=== PATIENT | male | born 1935 | race Caucasian/White ===

== ENCOUNTER 2019-02-18 14:45 | Inpatient (IN) | payer BC ==
[~2019-02-18] VITALS: Ht 182.9 cm; Wt 89.4 kg
[2019-02-18] VITALS (9 sets, daily range): BP systolic 83–129
--- NOTE | 2019-02-18 14:45 | NUR ---
BIB BLS from [facility] for respiratory infection. Placed in room 03. Placed on hospital monitor, blood pressure machine and pulse oximeter. To gown for exam. Side rails up. Report given to Dr. Gavin.
--- NOTE | 2019-02-18 14:48 | NUR ---
ER Dr. Gavin at bedside examining patient.
[2019-02-18] MEDS ORDERED: NACL 0.9% 1,000 ML IV ONE (15:15)
--- NOTE | 2019-02-18 15:17 | NUR ---
Dr. Gavin at bedside. Pt does not have gag reflex but is arrousable.
--- NOTE | 2019-02-18 15:20 | NUR ---
# 16 FR Sheppard catheter with use of sterile technique. Immediate return of 100 cc dark yellow urine noted. Bedside drainage bag placed below level of bladder. Urine sample collected and sent to lab. Pt tolerated procedure well Patient unable to toilet self.
--- NOTE | 2019-02-18 15:22 | NUR ---
Patient not known to be of DNR status. POLST states FULL CODE. Patient medicated with 20mg of etomidate for sedation prior to placement of ET tube. Respiratory therapy at bedside prior to placement. Size 7.5 ET tube placed by Dr. Gavin, +C02 color change. Cuff inflated with air. Auscultation of breath sounds over bilateral chest wall. ET tube secured with secure device. O2 sats 79% pulse ox prior to intubation, increased to 93%. PCXR ordered to check tube placement.
--- NOTE | 2019-02-18 15:35 | NUR ---
# 16 FR NG tube placed to RT & LT nare without success. #16 FR OG tube placed.
[2019-02-18 15:36] LABS: EOSINOPHILS # (AUTO) 0.3 K/uL (0.0-0.4); EOSINOPHILS % (AUTO) 2.2 % (0.0-4.0); HEMATOCRIT 43.2 % (36-54); LYMPHOCYTES # (AUTO) 0.5 K/uL (1.0-5.5); LYMPHOCYTES % (AUTO) 3.6 % (20.5-51.5); MEAN CORPUSCULAR HEMOGLOBIN 27 pg (27-31); MEAN CORPUSCULAR HGB CONC 30 % (32-36); MEAN CORPUSCULAR VOLUME 89 fL (79.0-98.0); MONOCYTES # (AUTO) 1.6 K/uL (0.0-1.0); MONOCYTES % (AUTO) 10.6 % (1.7-9.3); NEUTROPHILS # (AUTO) 12.2 K/uL (1.8-7.7); NEUTROPHILS % (AUTO) 82.6 % (40.0-70.0); RED BLOOD CELL COUNT(AUTO) 4.85 MIL/uL (4.2-6.2); RED CELL DISTRIBUTION WIDTH 19.6 % (9.0-15.0); WHITE BLOOD COUNT (AUTO) 14.8 K/uL (4.8-10.8)
--- NOTE | 2019-02-18 15:37 | NUR ---
PCxR taken at bedside ETT placement and NG/OG tube verification. OG needed to be pushed down, repeat taken, not in stomach. Removed per MD order
--- NOTE | 2019-02-18 15:40 | NUR ---
Pt moved to bed 1 for closer monitoring
[2019-02-18] MEDS ORDERED: PROPOFOL DRIP 100 ML IV ONE (15:45)
--- NOTE | 2019-02-18 15:45 | NUR ---
Pt attempting to pull out ETT, order for restraints recieved. Pt placed in bilat upper restraints.
[2019-02-18 15:46] LABS: INR 1.2 (0.80-1.20); PROTHROMBIN TIME 12.2 SECS (9.5-12.5)
[2019-02-18 15:50] LABS: PLATELET COUNT (AUTO) 947 K/uL (130-430)
[2019-02-18 15:55] LABS: BLOOD, URINE 1+ (NEGATIVE); COLOR,URINE AMBER (YELLOW); GLUCOSE,URINE NEGATIVE (NEGATIVE); KETONES,URINE TRACE (NEGATIVE); LEUKOCYTE ESTERASE ,URINE TRACE (NEGATIVE); NITRITE, URINE NEGATIVE (NEGATIVE); PROTEIN URINE 1+ (NEGATIVE); UROBILINOGEN,URINE 0.2 (0.2-1.0)
[2019-02-18 15:56] LABS: BILIRUBIN,URINE NEGATIVE (NEGATIVE); CLARITY/URINE HAZY (CLEAR)
[2019-02-18 15:58] LABS: BACTERIA,URINE MODERATE /HPF (None Seen); MUCUS,URINE None Seen /LPF (None Seen)
[2019-02-18] MEDS ORDERED: ETOMIDATE 20 MG/ 10 ML VIAL (AMIDATE) ONE (16:00)
[2019-02-18 16:02] LABS: ANION GAP 3 (5-15); BASOPHILS # (AUTO) 0.1 K/uL (0.0-0.2); CALCIUM 7.1 mg/dL (8.4-11.0); CHLORIDE 104 mmol/L (98-107); GLUCOSE 144 mg/dL (70-99); POTASSIUM 5.3 mmol/L (3.5-5.1); SODIUM SERUM 143 mmol/L (136-145); UREA NITROGEN, BLOOD 47 mg/dL (8-21)
--- NOTE | 2019-02-18 16:06 | NUR ---
Propofol started at 5mcg, pt intermittently attempting to grab ETT.
--- NOTE | 2019-02-18 16:14 | NUR ---
Propofol increased to 10mcg
[2019-02-18 16:17] LABS: ALANINE AMINOTRANSFERASE 12 U/L (12-78); ALBUMIN 3.1 g/dL (3.4-4.8); ASPARTATE AMINOTRANSFERASE 11 U/L (10-37); TOTAL BILIRUBIN 0.4 mg/dL (0.0-1.0)
[2019-02-18] MEDS ORDERED: PIPERACILLIN/TAZO 3.375 GM in NS 50 ML IV ONE (16:30)
[2019-02-18] MEDS ORDERED: NACL 0.9% 1,250 ML IV ONE (16:30)
[2019-02-18] MEDS ORDERED: CLINDAMYCIN 900 mg/50mL D5W 50 ML IV ONE (16:30)
[2019-02-18] MEDS ORDERED: LOSA50TA3 PO (16:51)
[2019-02-18] MEDS ORDERED: METO25TA3 PO (16:51)
[2019-02-18] MEDS ORDERED: AMLO5TAB4 PO (16:51)
[2019-02-18] MEDS ORDERED: ACET325T53 PO (16:51)
[2019-02-18] MEDS ORDERED: RIVA20TA PO (16:51)
[2019-02-18] MEDS ORDERED: HYT1 PO (16:51)
[2019-02-18] MEDS ORDERED: SSREG SUBCUT (16:51)
[2019-02-18] MEDS ORDERED: AMIN30LI19 PO (16:51)
[2019-02-18] MEDS ORDERED: SENN8.6T19 GT (16:51)
[2019-02-18] MEDS ORDERED: MEMA10TA PO (16:51)
[2019-02-18] MEDS ORDERED: FURO-149 PO (16:51)
[2019-02-18] MEDS ORDERED: IPRA3AMP9 INH (16:51)
[2019-02-18] MEDS ORDERED: GLU500 PO (16:51)
[2019-02-18] MEDS ORDERED: MULT-1117 PO (16:51)
[2019-02-18] MEDS ORDERED: ASCO500T20 PO (16:51)
[2019-02-18] MEDS ORDERED: HYDR-4274 PO (16:51)
[2019-02-18] MEDS ORDERED: POTA20TA83 PO (16:51)
[2019-02-18] MEDS ORDERED: ACAR50TA PO (16:51)
[2019-02-18] MEDS ORDERED: PIPERACILLIN/TAZOBACTAM 3.375 GM/VIAL (ZOSYN) IV ONE (16:53)
[2019-02-18] MEDS ORDERED: LORazepam 2 MG/ML VIAL IVP ONE (17:00)
--- NOTE | 2019-02-18 17:00 | NUR ---
Medication reconciliation completed with information provided by [facility]. Any prior medication reconciliation on file was reviewed and corrected.
[2019-02-18] MEDS ORDERED: LORazepam 2 MG/ML VIAL ONE (17:09)
[2019-02-18] MEDS ORDERED: SODIUM POLYSTYRENE SULFONATE 15 GM/60 ML UDBTL RC ONE (17:15)
--- NOTE | 2019-02-18 18:51 | NUR ---
Patient will be admitted to care of Dr. Albright. Admitted to ICU unit. Will go to room ICU-8. Belongings list completed. Complete and up to date summary report printed. SBAR report to be given at bedside with opportunity for questions.
--- NOTE | 2019-02-18 18:55 | NUR ---
Patient Transfer Received Patient report received via SBAR communication from nurse Ayanna RN
[2019-02-18] MEDS ORDERED: LevALBUTEROL HCL 1.25 MG/0.5 ML *CONC.* VIAL.NEB (XOPENEX CONC.) INH PRN (19:15)
[2019-02-18] MEDS ORDERED: AZITHROMYCIN 500 MG in NS 250 ML IV SCH (19:15)
[2019-02-18] MEDS ORDERED: IPRATROPIUM BROM 0.5 MG/2.5 ML VIAL.NEB (ATROVENT) INH PRN (19:15)
--- NOTE | 2019-02-18 19:15 | NUR ---
OPENING NOTE RECEIVED REPORT FROM NJ HERNANDEZ. ASSUMED CARE OF PATIENT.
[2019-02-18] MEDS ORDERED: ACETAMINOPHEN 325 MG TABLET PO PRN (19:30)
[2019-02-18] MEDS ORDERED: ALBUTEROL SULFATE 0.083% 2.5 MG/3 ML VIAL.NEB INH PRN (19:30)
[2019-02-18] MEDS ORDERED: PIPERACILLIN/TAZO 3.375/DEX-IS 50 ML IV SCH (19:30)
--- NOTE | 2019-02-18 19:32 | NUR ---
Closing Note Provided patient report via SBAR to NJ Mccoy
[2019-02-18] MEDS ORDERED: LORazepam 2 MG/ML VIAL IVP PRN (19:45)
[2019-02-18] MEDS ORDERED: MORPHINE 2 MG/ML INJ. SYRINGE IVP PRN (19:45)
--- NOTE | 2019-02-18 19:55 | NUR ---
CONSULT-CARDIO DR. DEON SHARMA IMMIGRATION LAW SPECIALIST [phone] SPOKE WITH CECY
--- NOTE | 2019-02-18 20:00 | NUR ---
PM ASSESSMENT PT LAYING IN BED INTUBATED. ET TUBE 7.5 LIP LINE 24. MECHANICAL VENT SETTINGS AC 20, TIDAL VOLUME 500, FiO2 100%, PEEP 5. RESPIRATIONS EQUAL AND UNLABORED. PT TOLERATING SETTINGS WELL. DIMINISHED BREATH SOUNDS IN BILATERAL BASES WITH CRACKLES. UPPER LOBES CLEAR. PT ATRIAL FIBRILLATION ON MONITOR. S1/S2 PRESENT. RADIAL AND PEDAL PULSES EQUAL AND STRONG. PT HAS 18G LEFT AC SALINE LOCK AND 20 G RIGHT FOREARM RUNNING DIPRIVAN @ 10 MCG/KG/MIN. PT HAS BILATERAL WRIST RESTRAINTS PRESENT. NO SIGNS OF INJURY NOTED. BOWEL SOUNDS ACTIVE. PT HAS OG TUBE CLAMPED. PT HAS REDDENING TO SACRUM, BUTTOCKS AND RIGHT THIGH. FOAM DRESSING APPLIED. PT ALSO HAS DEEPALI TO BILATERAL HEELS. DRESSING APPLIED AND FLOATED. PT HAS KWON CATHETER FLOWING TO GRAVITY PRESENT. BED LOCKED IN LOWEST POSITION. SAFETY PRECAUTIONS IN PLACE. CALL LIGHT WITHIN REACH. WILL CONTINUE TO MONITOR.
--- NOTE | 2019-02-18 20:40 | NUR ---
RN UPDATE UNABLE TO VERIFY PLACEMENT OF OG TUBE UPON AUSCULTATION. NEW 16 FR OG TUBE INSERTED. POSITION VERIFIED. WILL CONTINUE TO MONITOR.
--- NOTE | 2019-02-18 20:52 | NUR ---
MD ODOM Called Dr. Jeter for RT results [phone] Spoke with Lin
[2019-02-18] MEDS ORDERED: HEPARIN SODIUM,PORCINE 5000 UNITS/ML VIAL SUBCUT SCH (21:00)
--- NOTE | 2019-02-18 21:11 | NUR ---
MD UPDATE SPOKE TO MD NOBLE REGARDING ABG RESULTS. STATES TO CONTINUE WITH CURRENT VENT SETTINGS. MD NOBLE RENEWED ORDER FOR DIPRIVAN PER PROTOCOL AND RENEWED ORDER FOR RESTRAINTS. ORDERS UPDATED. WILL CONTINUE TO MONITOR.
[2019-02-18] MEDS: FAMOTIDINE PF 20 MG/2 ML VIAL IVP SCH (21:36)
[2019-02-18] MEDS: 0.45% NACL 1,000 ML IV SCH (21:36)
--- NOTE | 2019-02-18 21:55 | NUR ---
MD UPDATE MD BARRETO AT BEDSIDE EVALUATING PATIENT. ORDERS RECEIVED. WILL CARRY OUT ORDERS RECEIVED.
[2019-02-18] MEDS ORDERED: AZITHROMYCIN 500 MG/VIAL (ZITHROMAX) IV ONE (21:56)
[2019-02-18] MEDS ORDERED: PIPERACILLIN/TAZOBACTAM 2.25 GM VIAL IV ONE (21:57)
[2019-02-18] MEDS: PIPERACILLIN/TAZO 2.25G/DEX-IS 50 ML IV SCH (23:16)
[2019-02-18] MEDS: AZITHROMYCIN 500 MG in NS 250 ML IV SCH (23:17)
[2019-02-19] VITALS (34 sets, daily range): BP systolic 65–138
[2019-02-19] MEDS: IPRATROPIUM BROM 0.5 MG/2.5 ML VIAL.NEB (ATROVENT) INH SCH ×3 (01:43→19:59)
[2019-02-19] MEDS: LevALBUTEROL HCL 1.25 MG/0.5 ML *CONC.* VIAL.NEB (XOPENEX CONC.) INH SCH ×3 (01:43→19:59)
--- NOTE | 2019-02-19 04:30 | NUR ---
RN UPDATE PT HAD LARGE BROWN SOFT BOWEL MOVEMENT. PT CLEANED AND LINENS CHANGED. WILL CONTINUE TO MONITOR.
[2019-02-19] MEDS: PIPERACILLIN/TAZO 2.25G/DEX-IS 50 ML IV SCH ×4 (06:21→23:34)
[2019-02-19 06:39] LABS: BASOPHILS # (AUTO) 0.1 K/uL (0.0-0.2); BASOPHILS % (AUTO) 0.6 % (0.0-2.0); EOSINOPHILS # (AUTO) 0.1 K/uL (0.0-0.4); EOSINOPHILS % (AUTO) 0.8 % (0.0-4.0); HEMATOCRIT 38.3 % (36-54); HEMOGLOBIN 12.2 g/dL (14.0-18.0); LYMPHOCYTES # (AUTO) 0.3 K/uL (1.0-5.5); MEAN CORPUSCULAR HEMOGLOBIN 27 pg (27-31); MEAN CORPUSCULAR HGB CONC 32 % (32-36); MEAN CORPUSCULAR VOLUME 85 fL (79.0-98.0); MONOCYTES # (AUTO) 1.1 K/uL (0.0-1.0); MONOCYTES % (AUTO) 6.6 % (1.7-9.3); NEUTROPHILS # (AUTO) 15.1 K/uL (1.8-7.7); RED BLOOD CELL COUNT(AUTO) 4.51 MIL/uL (4.2-6.2); RED CELL DISTRIBUTION WIDTH 18.6 % (9.0-15.0); WHITE BLOOD COUNT (AUTO) 16.8 K/uL (4.8-10.8)
[2019-02-19 06:56] LABS: PLATELET COUNT (AUTO) 810 K/uL (130-430)
[2019-02-19 07:11] LABS: ALANINE AMINOTRANSFERASE 11 U/L (12-78); ALBUMIN 2.4 g/dL (3.4-4.8); ANION GAP 6 (5-15); CHLORIDE 109 mmol/L (98-107); CREATININE 2.23 mg/dL (0.55-1.30); GLUCOSE 112 mg/dL (70-99); PHOSPHORUS 3.9 mg/dL (2.7-4.5); POTASSIUM 4.1 mmol/L (3.5-5.1); SODIUM SERUM 146 mmol/L (136-145); TOTAL BILIRUBIN 0.4 mg/dL (0.0-1.0); UREA NITROGEN, BLOOD 53 mg/dL (8-21)
[2019-02-19 07:12] LABS: CALCIUM 6.5 mg/dL (8.4-11.0)
--- NOTE | 2019-02-19 07:28 | NUR ---
MD Dr. Murali mack, spoke to Sandee with the exchange.
--- NOTE | 2019-02-19 07:36 | NUR ---
Opening Note Patient received in bed intubated on ventilator with settings of AC 20, tidal volume 500, FiO2 100%, and PEEP 5. Patient on patient navigator with a-fib. SBP is in the 70s, patient placed on Trendelenburg position. Call in place for MD. Patient on diprivan @ 20 mcg/min and 1/2 NS @ 100 ml/hr. Patient with kirk catheter draining yellow urine. Safety precautions in place. Continuous monitoring in place.
[2019-02-19] MEDS: PROPOFOL DRIP 100 ML IV PRN ×3 (07:44→23:51)
[2019-02-19 07:46] LABS: ASPARTATE AMINOTRANSFERASE 23 U/L (10-37)
[2019-02-19] MEDS: NOREPINEPHRINE BITARTRATE 4 MG in NS 246 ML IV PRN ×4 (08:26→23:51)
--- NOTE | 2019-02-19 08:35 | NUR ---
MD Rounds Dr. Agee at bedside for examination. New orders received.
[2019-02-19] MEDS ORDERED: DEXTROSE 50%-WATER 50 ML DISP.SYRIN IVP PRN (09:00)
[2019-02-19] MEDS ORDERED: D5W 1,000 ML IV PRN (09:00)
[2019-02-19] MEDS ORDERED: GLUCOSE 15 GM GEL (in 37.5 GM TUBE) PO PRN (09:00)
--- NOTE | 2019-02-19 10:01 | NUR ---
Paged Dr. Tabor for consult, spoke to Anaid at the exchange.
--- NOTE | 2019-02-19 10:26 | NUR ---
SS NOTE: Unable to be interviewed, pt is intubated and sedated.
[2019-02-19] MEDS: 0.45% NACL 1,000 ML IV SCH ×2 (10:30→15:15)
--- NOTE | 2019-02-19 10:42 | NUR ---
RN Rounds Patient VSS at this time. Patient sedated, resting in bed. No signs of distress noted. Safety precautions enforced.
--- NOTE | 2019-02-19 10:50 | NUR ---
Nutrition Update Lonny Scale 12 noted. Pt admitted for respiratory failure. Diet: NPO BMI: 22.4 kg/m2 RD to follow per nutrition care standards.
[2019-02-19] MEDS: LORazepam 2 MG/ML VIAL IVP PRN ×2 (11:01→17:38)
--- NOTE | 2019-02-19 12:00 | NUR ---
RN Rounds Patient sleeping at this time. No signs of distress noted.
--- NOTE | 2019-02-19 12:08 | NUR ---
MD Rounds Dr. Theodore at bedside. New orders received.
[2019-02-19] MEDS ORDERED: FUROSEMIDE 40 MG/4 ML VIAL IVP ONE (12:15)
[2019-02-19] MEDS ORDERED: APIXABAN 2.5 MG TABLET NG ONE (13:00)
[2019-02-19] MEDS: HYDROCORTISONE SOD SUCC 100 MG/2 ML VIAL IVP SCH ×2 (13:06→21:38)
--- NOTE | 2019-02-19 13:15 | NUR ---
MD Rounds Dr. Marcus at bedside for examination. New orders received.
--- NOTE | 2019-02-19 13:40 | NUR ---
MD Rounds Dr. Carrion at bedside. New orders received.
--- NOTE | 2019-02-19 19:12 | NUR ---
Closing Note Patient in no signs of distress at this time. Endorsed patient to night patrol inspector RN using SBAr format.
--- NOTE | 2019-02-19 19:20 | NUR ---
PM ASSESSMENT Pt in bed with eyes closed resting comfortably. No signs of acute distress or discomfort noted. VSS with controlled afib seen on the monitor. Pt intubated with vent settings: AC 16, TV 500, Fio2 95%, and PEEP of 5, tolerating well with O2 sats @ 94% and even and unlabored breathing. Pt has two 18g IV on LFA infusing 1/2 NS @ 100 cc/hr and Levophed @ 14 mcg/min, RFA 20g infusing diprivan @ 20 mcg/kg/min. Og tube noted, clamped. Sheppard cath noted draining urine to gravity. Bed is locked and in lowest position, call light within reach, will cont to monitor pt.
[2019-02-19] MEDS ORDERED: NOREPINEPHRINE 4 MG/4 ML VIAL IV ONE ×2 (19:40→23:37)
--- NOTE | 2019-02-19 20:40 | NUR ---
Family at bedside visiting pt, will cont to monitor pt.
[2019-02-19] MEDS: FAMOTIDINE PF 20 MG/2 ML VIAL IVP SCH (21:36)
[2019-02-19] MEDS: APIXABAN 2.5 MG TABLET NG SCH (21:38)
[2019-02-19] MEDS: AZITHROMYCIN 500 MG in NS 250 ML IV SCH (21:40)
[2019-02-20] VITALS (30 sets, daily range): BP systolic 84–130
--- NOTE | 2019-02-20 | NUR ---
Pt in bed with eyes closed resting comfortably. No signs of acute distress or discomfort noted. pt repositioned at this time, oral care given. Bed is locked and in lowest position, call light within reach, will cont to monitor pt.
[2019-02-20] MEDS: LevALBUTEROL HCL 1.25 MG/0.5 ML *CONC.* VIAL.NEB (XOPENEX CONC.) INH SCH ×4 (01:12→19:51)
[2019-02-20] MEDS: IPRATROPIUM BROM 0.5 MG/2.5 ML VIAL.NEB (ATROVENT) INH SCH ×4 (01:12→19:51)
[2019-02-20] MEDS: 0.45% NACL 1,000 ML IV SCH ×3 (01:37→20:33)
[2019-02-20] MEDS: LORazepam 2 MG/ML VIAL IVP PRN ×3 (03:14→13:28)
--- NOTE | 2019-02-20 04:00 | NUR ---
CHG CHG bath given to pt at this time. Pt tolerated well. Oral care given, pt repositioned. Bed is locked and in lowest position, call light within reach, will cont to monitor pt.
[2019-02-20] MEDS ORDERED: NOREPINEPHRINE 4 MG/4 ML VIAL IV ONE (04:48)
[2019-02-20 05:08] LABS: BASOPHILS # (AUTO) 0.2 K/uL (0.0-0.2); BASOPHILS % (AUTO) 1.1 % (0.0-2.0); EOSINOPHILS % (AUTO) 0.3 % (0.0-4.0); HEMATOCRIT 41.1 % (36-54); HEMOGLOBIN 13.2 g/dL (14.0-18.0); LYMPHOCYTES # (AUTO) 0.6 K/uL (1.0-5.5); LYMPHOCYTES % (AUTO) 3.1 % (20.5-51.5); MEAN CORPUSCULAR HEMOGLOBIN 27 pg (27-31); MEAN CORPUSCULAR HGB CONC 32 % (32-36); MEAN CORPUSCULAR VOLUME 83 fL (79.0-98.0); MONOCYTES # (AUTO) 1.1 K/uL (0.0-1.0); MONOCYTES % (AUTO) 5.5 % (1.7-9.3); NEUTROPHILS # (AUTO) 17.8 K/uL (1.8-7.7); RED BLOOD CELL COUNT(AUTO) 4.96 MIL/uL (4.2-6.2); RED CELL DISTRIBUTION WIDTH 18.6 % (9.0-15.0); WHITE BLOOD COUNT (AUTO) 19.7 K/uL (4.8-10.8)
[2019-02-20] MEDS: HYDROCORTISONE SOD SUCC 100 MG/2 ML VIAL IVP SCH ×3 (05:10→21:17)
[2019-02-20] MEDS: PIPERACILLIN/TAZO 2.25G/DEX-IS 50 ML IV SCH ×4 (05:11→23:20)
[2019-02-20 05:16] LABS: PLATELET COUNT (AUTO) 1002 K/uL (130-430)
[2019-02-20] MEDS: NOREPINEPHRINE BITARTRATE 4 MG in NS 246 ML IV PRN ×2 (05:19→18:15)
--- NOTE | 2019-02-20 05:26 | NUR ---
PAGE PAGED DR. LOPEZ REGARDING CRITICAL RESULTS. DR. BARRETO IS I O PSYCHOLOGIST. SPOKE WITH FRANCISCO JAVIER AT THE EXCHANGE.
--- NOTE | 2019-02-20 05:32 | NUR ---
Dr. William called back and was made aware of pt's critical result of PLT 1002. No change in orders, will cont to monitor pt.
[2019-02-20 05:48] LABS: ALANINE AMINOTRANSFERASE 6 U/L (12-78); ALBUMIN 2.4 g/dL (3.4-4.8); ANION GAP 8 (5-15); ASPARTATE AMINOTRANSFERASE 25 U/L (10-37); CHLORIDE 105 mmol/L (98-107); CREATININE 1.12 mg/dL (0.55-1.30); GLUCOSE 158 mg/dL (70-99); PHOSPHORUS 2.9 mg/dL (2.7-4.5); SODIUM SERUM 143 mmol/L (136-145); TOTAL BILIRUBIN 0.7 mg/dL (0.0-1.0); UREA NITROGEN, BLOOD 39 mg/dL (8-21)
[2019-02-20 06:01] LABS: CALCIUM 6.4 mg/dL (8.4-11.0); POTASSIUM 2.6 mmol/L (3.5-5.1)
--- NOTE | 2019-02-20 06:14 | NUR ---
MD SHADIA ODOM FOR ADDITIONAL CRITICAL LABS. SPOKE WITH HERBERT AT THE EXCHANGE.
--- NOTE | 2019-02-20 06:25 | NUR ---
Dr. William called back and was made aware of pt's critical result of potassium 2.6 and calcium 6.4. New orders received, will carry out orders. Will cont to monitor pt.
[2019-02-20] MEDS ORDERED: CALCIUM GLUCONATE 1 GM/10 ML VIAL ONE (06:53)
[2019-02-20] MEDS ORDERED: CALCIUM GLUCONATE 1 GM in NS 100 ML IV SCH (07:00)
[2019-02-20] MEDS ORDERED: POTASSIUM CHLORIDE 40 MEQ in NS 250 ML IV SCH (07:00)
--- NOTE | 2019-02-20 07:24 | NUR ---
ENDORSEMENT Report given to dayshift RN using SBAR format and pt care was endorsed. No signs of acute distress or discomfort noted.
--- NOTE | 2019-02-20 07:25 | NUR ---
AM ASSESSMENT Pt received from Pedro Pablo MAURO using SBAR. Pt resting in bed with HOB greater than 35 degrees. Bilateral soft wrist restraints in place, no obstruction to circulation. Pt connected to vent with settings of AC16, 550, 95%, PEEP5 with oxygen saturation of 95% on the in room monitor. Sheppard in place draining yellow urine to gravity. Bed in lowest position with call light within reach.
[2019-02-20] MEDS: PROPOFOL DRIP 100 ML IV PRN ×2 (07:28→18:18)
--- NOTE | 2019-02-20 08:09 | NUR ---
Oral Care Pt provided oral care, pt was not able to understand directions and moved head from side to side. Will continue to try again once pt calms down.
[2019-02-20] MEDS: APIXABAN 2.5 MG TABLET NG SCH ×2 (09:16→20:35)
--- NOTE | 2019-02-20 10:10 | NUR ---
PATIENT RESTING: Patient resting quietly. No acute distress noted. Will continue to monitor.
--- NOTE | 2019-02-20 12:07 | NUR ---
Oral Care Pt provided oral care. Large amount of thin clear oral secretions
--- NOTE | 2019-02-20 13:20 | NUR ---
Engineering Manager Dr. Theodore called back and informed of Pt's heart rate dropping into the low 40's. MD made aware, instructed to continue to monitor rhythm. No new orders
--- NOTE | 2019-02-20 15:26 | NUR ---
Dietitian Recommendations *Continue Glucerna 1.2 at 30ml/hr and 100ml FWF Q6h. Advance as 10ml Q8H as tolerated until Glucerna 1.2 at 50ml/hr (goal rate). *TF goal rate w/ Propofol provides 1968kcal and 72gPro *Meets 103%kcal of lower end of estimated caloric needs and 80%of lower end of protein estimated nutrition needs Please see Nutrition Follow Up for further details. LT, RD
[2019-02-20 15:51] LABS: CALCIUM 7.6 mg/dL (8.4-11.0); POTASSIUM 3.1 mmol/L (3.5-5.1)
[2019-02-20] MEDS ORDERED: POTASSIUM CHLORIDE 20 MEQ/PKT PACKET PO ONE (16:45)
--- NOTE | 2019-02-20 17:08 | NUR ---
PATIENT RESTING: Patient resting quietly. No acute distress noted.
[2019-02-20] MEDS ORDERED: CALCIUM GLUCONATE 1 GM in NS 100 ML IV ONE (17:30)
--- NOTE | 2019-02-20 19:10 | NUR ---
PM ASSESSMENT Pt in bed with eyes closed resting comfortably. No signs of acute distress or discomfort noted. VSS with controlled afib seen on the monitor. Pt intubated with vent settings: AC 16, TV 500, Fio2 95%, and PEEP of 5, tolerating well with O2 sats @ 97% and even and unlabored breathing. Pt has two 18g IV on LFA infusing 1/2 NS @ 100 cc/hr and Levophed @ 2 mcg/min, RFA 20g infusing diprivan @ 20 mcg/kg/min. Og tube noted infusing Glucerna 1.2 @ 30 cc/hr. Sheppard cath noted draining urine to gravity. Bilateral wrist restraints noted, no injury noted. Bed is locked and in lowest position, call light within reach, will cont to monitor pt.
--- NOTE | 2019-02-20 19:27 | NUR ---
Closing Notes Report given to Pedro Pablo MAURO using SBAR.
[2019-02-20] MEDS: AZITHROMYCIN 500 MG in NS 250 ML IV SCH (20:32)
[2019-02-20] MEDS: FUROSEMIDE 40 MG/4 ML VIAL IVP SCH (20:33)
[2019-02-20] MEDS: FAMOTIDINE PF 20 MG/2 ML VIAL IVP SCH (20:34)
[2019-02-21] VITALS (30 sets, daily range): BP systolic 93–127
--- NOTE | 2019-02-21 | NUR ---
Pt in bed with eyes closed resting comfortably, no signs of acute distress or discomfort noted. Bed is locked and in lowest position, call light within reach, will cont to monitor pt.
[2019-02-21] MEDS: LevALBUTEROL HCL 1.25 MG/0.5 ML *CONC.* VIAL.NEB (XOPENEX CONC.) INH SCH ×3 (00:37→19:45)
[2019-02-21] MEDS: IPRATROPIUM BROM 0.5 MG/2.5 ML VIAL.NEB (ATROVENT) INH SCH ×3 (00:38→19:45)
[2019-02-21] MEDS: PROPOFOL DRIP 100 ML IV PRN ×3 (00:55→21:11)
--- NOTE | 2019-02-21 03:10 | NUR ---
DIPRIVAN TITRATION WITNESSED SYLVIA MAURO TITRATE DIPRIVAN DRIP FROM 20 TO 25 MCG/KG/MIN. WILL CONTINUE TO MONITOR PT.
--- NOTE | 2019-02-21 03:30 | NUR ---
CHG CHG bath given to pt at this time. Pt tolerated well. Bed is locked and in lowest position, call light within reach, will cont to monitor pt.
[2019-02-21] MEDS: PIPERACILLIN/TAZO 2.25G/DEX-IS 50 ML IV SCH ×3 (05:22→17:10)
[2019-02-21] MEDS: HYDROCORTISONE SOD SUCC 100 MG/2 ML VIAL IVP SCH ×3 (05:22→21:08)
[2019-02-21 06:01] LABS: BASOPHILS % (AUTO) 0.3 % (0.0-2.0); EOSINOPHILS % (AUTO) 0.2 % (0.0-4.0); HEMATOCRIT 38.9 % (36-54); HEMOGLOBIN 12.4 g/dL (14.0-18.0); LYMPHOCYTES # (AUTO) 0.6 K/uL (1.0-5.5); LYMPHOCYTES % (AUTO) 4.4 % (20.5-51.5); MEAN CORPUSCULAR HEMOGLOBIN 27 pg (27-31); MEAN CORPUSCULAR HGB CONC 32 % (32-36); MEAN CORPUSCULAR VOLUME 84 fL (79.0-98.0); MONOCYTES # (AUTO) 1.4 K/uL (0.0-1.0); NEUTROPHILS # (AUTO) 12.1 K/uL (1.8-7.7); NEUTROPHILS % (AUTO) 85.1 % (40.0-70.0); RED BLOOD CELL COUNT(AUTO) 4.66 MIL/uL (4.2-6.2); RED CELL DISTRIBUTION WIDTH 18.7 % (9.0-15.0); WHITE BLOOD COUNT (AUTO) 14.2 K/uL (4.8-10.8)
[2019-02-21 06:06] LABS: ALANINE AMINOTRANSFERASE 13 U/L (12-78); ALBUMIN 2.2 g/dL (3.4-4.8); ANION GAP 4 (5-15); ASPARTATE AMINOTRANSFERASE 18 U/L (10-37); CALCIUM 7.6 mg/dL (8.4-11.0); CHLORIDE 108 mmol/L (98-107); CREATININE 0.71 mg/dL (0.55-1.30); GLUCOSE 139 mg/dL (70-99); SODIUM SERUM 142 mmol/L (136-145); TOTAL BILIRUBIN 0.6 mg/dL (0.0-1.0); UREA NITROGEN, BLOOD 27 mg/dL (8-21)
[2019-02-21] MEDS: 0.45% NACL 1,000 ML IV SCH ×2 (06:18→17:11)
[2019-02-21 06:32] LABS: POTASSIUM 2.6 mmol/L (3.5-5.1)
--- NOTE | 2019-02-21 06:51 | NUR ---
MD SHADIA William paged a second time for critical lab results. Will cont to monitor pt.
--- NOTE | 2019-02-21 07:10 | NUR ---
ENDORSEMENT Report given to oncoming dayshift RN using SBAR format and pt care was endorsed. No signs of acute distress or discomfort noted.
[2019-02-21 07:11] LABS: PLATELET COUNT (AUTO) 867 K/uL (130-430)
--- NOTE | 2019-02-21 07:15 | NUR ---
Opening Note Patient report received via SBAR from NJ Moeller
[2019-02-21] MEDS ORDERED: POTASSIUM CHLORIDE 40 MEQ in NS 250 ML IV ONE ×2 (07:30→16:45)
--- NOTE | 2019-02-21 07:30 | NUR ---
MD Call Dr. Albright informed regarding critical lab values, physician gave orders
--- NOTE | 2019-02-21 07:52 | NUR ---
Dr. Carrion at bedside examining patient. New orders received.
[2019-02-21] MEDS: FUROSEMIDE 40 MG/4 ML VIAL IVP SCH ×3 (08:34→21:06)
[2019-02-21] MEDS: APIXABAN 2.5 MG TABLET NG SCH ×2 (08:35→21:09)
[2019-02-21] MEDS: INSULIN REGULAR, HUMAN 100 UNITS/ML, 10 ML VIAL (humuLIN R) SUBCUT PRN (11:48)
--- NOTE | 2019-02-21 13:02 | NUR ---
Dr. Tabor at bedside examining patient. No new orders.
[2019-02-21] MEDS: LORazepam 2 MG/ML VIAL IVP PRN (13:16)
--- NOTE | 2019-02-21 13:35 | NUR ---
Nursing Note Witnessed Diprivan drip titration to 20mcg/kg/min
--- NOTE | 2019-02-21 13:51 | NUR ---
Nursing Note Witnessed Diprivan titration to 15mcg/kg/min
--- NOTE | 2019-02-21 14:22 | NUR ---
Witnessed Diprivan titration to 10 mcg/kg/min.
--- NOTE | 2019-02-21 14:45 | NUR ---
Nursing Note Wound care performed alongside wound care nurse NJ Davis. New wound care orders entered and followed
--- NOTE | 2019-02-21 14:45 | NUR ---
WOUND EVALUATION: Wound Consult received from Dr. Albright. Thank you, Dr. Albright, for the consult. Patient received in a [place] Bed with an IsoFlex ROSS mattress, awake, nonverbal, nonresponsive to verbal commands. Patient is unable to turn in bed independently. Lonny Score is a 12. Past Medical History: COPD, Hypertension, Heart failure, A-Fib, Dementia, Pneumonia, Diabetes Mellitus, Chronic Kidney Disease. Patient is in respiratory failure. Recent Labs: WBC 14.2, RBC 4.66, hemoglobin 12.4, hematocrit 38.9, platelets 867, potassium 3.1, chloride 108, BUN 27, creatinine 0.71, glucose 139, calcium 7.6, albumin 2.2. Microbiology: Blood culture results 2 in progress. Urine culture results negative. Endotracheal culture results negative. MRSA screen results negative. Intrinsic factors that delay wound healing: COPD, Diabetes Mellitus, Chronic Kidney Disease, Hypoalbuminemia. Extrinsic factors that delay wound healing: Decreased mobility. Wound Assessment: 1. Right lateral heel: Stage I pressure ulcer, present on admission. Site has now blanchable erythema. Site measures 2.5 cm x 3.3 cm. 2. Left posterior heel: sDTI, present on admission. Site has 80% non-blanchable red erythema, 20% dark discolored/purple tissue. No odor, no drainage. Site measures 3.0 cm x 2.0 cm. Recommend: Elevate, offload and float bilateral heels with HeeLift boots. Check HeeLift boots during hourly rounds to ensure that heels are floating freely within boots. 3. Left medial second toe: Unstageable pressure ulcer, present on admission. Wound bed has 100% yellow slough. No odor, no drainage. Periwound intact. Wound measures 1.0 cm x 1.0 cm. Recommend: Cleanse wound with normal saline. Apply SurePrep to narcisa-wound. Apply Venelex ointment to wound bed. Cover with foam dressing, cut to size. Wrap with lizzy wrap. Perform wound care daily, and as needed for dressing soiling or dislodgement. Place gauze in between toes to offload from pressure. 4. Right posterior proximal lateral thigh: Wound, present on admission. Wound bed has 100% red tissue. No odor, no drainage. Periwound intact. Wound measures 7.0 cm x 2.0 cm. Recommend: Cleanse wound with normal saline. Apply moisture barrier cream to narcisa-wound. Apply Venelex ointment to wound bed. Cover with foam dressing, cut to size. Perform wound care daily, and as needed for dressing soiling or dislodgement. 5. Right outer lateral thigh: Area of non-blanchable erythema, present on admission. Recommend: Cleanse site with normal saline. Apply moisture barrier cream to site. Cover with foam dressing. Perform site care daily, and as needed for dressing soiling or dislodgement. 6. Right Mid to Distal Calf: Blanchable red erythema with erythema and calor. No odor, no drainage. Skin is intact. Recommend: No dressing needed. Continue to monitor site every shift. Offload extremity with one pillow lengthwise at all times. 7. Right buttock: Two open wounds, present on admission. Site has 100% dark red tissue. No odor, no drainage. Site measures 1.8 cm x 1.5 cm. Recommend: Cleanse wounds with normal saline. Apply moisture barrier cream to narcisa-wounds. Apply Venelex ointment to wound beds. Cover with foam dressing. Perform wound care daily, and as needed for dressing soiling or dislodgement. 8. Sacral/Buttocks area: sDTI, present on admission. Site has blanchable red erythema and dark discolored tissue bilaterally. No odor, no drainage. Site measures 1.6 cm x 1.3 cm. Recommend: Cover site with Sacral foam dressing. Perform site care daily, and as needed for dressing soiling or dislodgement. Offload site at all times, turning side to side only with one pillow underneath pelvis and one pillow underneath thighs (you should be able to slide hand freely underneath DTI area). Also recommend: Reposition patient side to side only every 2 hours with pillow support and off-load pressure areas with pillows for pressure re-distribution. Keep one pillow underneath pelvis and one pillow underneath thighs (you should be able to slide hand freely underneath DTI area). Offload, elevate and float bilateral heels with HeeLift Boots. Perform skin care and monitor skin integrity Q shift. Use moisture barrier cream on buttocks and other moisture susceptible areas QID and as needed for soiling. Maintain patient on a low air-loss mattress.
[2019-02-21] MEDS ORDERED: BALSAM PERU/CASTOR OIL 60 GM OINT...G. TP ONE (17:30)
--- NOTE | 2019-02-21 19:19 | NUR ---
Closing Note Provided patient report to oncoming nurse NJ Lee via SBAR communication
--- NOTE | 2019-02-21 20:00 | NUR ---
WITNESS Witnessed NJ Lee titrate Diprivan from 10mcg/kg/min to 15mcg/kg/min.
--- NOTE | 2019-02-21 20:00 | NUR ---
ORALLY INTUBATED. SUCTIONED WITH MOD AMOUNT OF THICK LINDSEY COLORED MUCUS OBTAINED. ORAL CARE GIVEN. RESISTIVE TO ORAL CARE. ELSI SOFT WRIST RESTRAINTS ON FOR SAFETY. OGT FEEDING WITH GLUCERNA 1.2 AT 50CC/HR. RESIDUAL CHECK 0. DIPRIVAN DRIP AT 10 MCG/KG/MIN. RESTLESS, DIPRIVAN DRIP TITRATED UP TO 15 MCG/KG/MIN. KWON CATH PATENT DRAINING CLOUDY MACHO URINE TO GRAVITY. AFIB.
--- NOTE | 2019-02-21 21:00 | NUR ---
WITNESS Witnessed NJ Lee titrate Diprivan from 15mcg/kg/min to 20mcg/kg/min.
--- NOTE | 2019-02-21 21:00 | NUR ---
RESTLESS, DIPRIVAN DRIP TITRATED UP TO 20 MCG/KG/MIN. HS CARE DONE.
[2019-02-21] MEDS: AZITHROMYCIN 500 MG in NS 250 ML IV SCH (21:07)
[2019-02-21] MEDS: FAMOTIDINE PF 20 MG/2 ML VIAL IVP SCH (21:08)
--- NOTE | 2019-02-21 22:00 | NUR ---
HR IN THE 40'S, ASYMPTOMATIC. SUCTIONED. CIRCULATION CHECK DONE.
[2019-02-22] VITALS (31 sets, daily range): BP systolic 99–140
--- NOTE | 2019-02-22 | NUR ---
SUCTIONED WITH SAME RESULTS. TURNED. PULSES PALPABLE. ACCU-CHECK 137, NO INSULIN DUE PER SLIDING SCALE COV. RESIDUAL CHECK 0, OGT FLUSHED WITH 100CC H2O.
[2019-02-22] MEDS: INSULIN REGULAR, HUMAN 100 UNITS/ML, 10 ML VIAL (humuLIN R) SUBCUT PRN ×4 (00:03→17:42)
[2019-02-22] MEDS: PIPERACILLIN/TAZO 2.25G/DEX-IS 50 ML IV SCH ×4 (00:04→22:51)
[2019-02-22] MEDS: IPRATROPIUM BROM 0.5 MG/2.5 ML VIAL.NEB (ATROVENT) INH SCH ×4 (00:59→19:48)
[2019-02-22] MEDS: LevALBUTEROL HCL 1.25 MG/0.5 ML *CONC.* VIAL.NEB (XOPENEX CONC.) INH SCH ×4 (00:59→19:48)
--- NOTE | 2019-02-22 02:00 | NUR ---
DOZES ON AND OFF. SUCTIONED. TURNED. PULSES PALPABLE.
[2019-02-22] MEDS: 0.45% NACL 1,000 ML IV SCH (03:45)
--- NOTE | 2019-02-22 04:00 | NUR ---
SLEPT INTERMITTENTLY. SUCTIONED AGAIN WITH SAME RESULTS. ORAL CARE DONE. RESIDUAL CHECK 0.
--- NOTE | 2019-02-22 05:00 | NUR ---
1 MOD BROWN LBM DEFECATED. CLEANED. CHG BATH GIVEN. AMARA-CARE, KWON CARE, BACK CARE, SKIN CARE RENDERED. PARTIAL LINEN CHANGE. DOES NOT ASSIST WITH TURNING. REMIGIO PROC WELL.
--- NOTE | 2019-02-22 06:00 | NUR ---
SUCTIONED AND TURNED Q 2 HRS AND PRN. UO GOOD. OGT FLUSHED WITH 100CC H2O. PULSES PALPABLE. REMAINS IN GUARDED CONDITION.
[2019-02-22] MEDS: HYDROCORTISONE SOD SUCC 100 MG/2 ML VIAL IVP SCH ×3 (06:24→21:53)
--- NOTE | 2019-02-22 06:45 | NUR ---
ACCU-CHEK 129, NO INSULIN DUE PER SLIDING SCALE COV. DR ESQUIVEL HERE, UPDATED ON STATUS. NO NEW ORDERS GIVEN.
[2019-02-22] MEDS: PROPOFOL DRIP 100 ML IV PRN ×3 (07:46→22:50)
--- NOTE | 2019-02-22 08:00 | NUR ---
Witnessed Diprivan titration to 25 mcg/kg/min.
[2019-02-22] MEDS: BALSAM PERU/CASTOR OIL 60 GM OINT...G. TP SCH (08:52)
[2019-02-22] MEDS: FUROSEMIDE 40 MG/4 ML VIAL IVP SCH ×3 (08:52→21:52)
--- NOTE | 2019-02-22 08:52 | NUR ---
Dr. Carrion in to see patient. New orders received.
[2019-02-22] MEDS: APIXABAN 2.5 MG TABLET NG SCH ×2 (08:53→22:00)
--- NOTE | 2019-02-22 08:56 | NUR ---
RT NOTES- 50% FI2O DECREASED FIO2 TO 50% PER . RN NOTIFIED. WILL CONTINUE MONITORING.
--- NOTE | 2019-02-22 09:01 | NUR ---
Opening Note Received patient report from NJ Lee via SBAR communication
--- NOTE | 2019-02-22 09:05 | NUR ---
Nursing Note Ventilator setting changed to FiO2 50%, patient current O2 saturation at 94%
[2019-02-22] MEDS: FAMOTIDINE 20 MG TABLET NG SCH ×2 (09:44→21:55)
--- NOTE | 2019-02-22 10:33 | NUR ---
Dr. Albright at bedside examining patient. New orders received.
[2019-02-22 11:22] LABS: BASOPHILS % (AUTO) 0.4 % (0.0-2.0); EOSINOPHILS # (AUTO) 0.1 K/uL (0.0-0.4); HEMOGLOBIN 12.7 g/dL (14.0-18.0); LYMPHOCYTES # (AUTO) 0.4 K/uL (1.0-5.5); LYMPHOCYTES % (AUTO) 3.1 % (20.5-51.5); MEAN CORPUSCULAR HEMOGLOBIN 26 pg (27-31); RED BLOOD CELL COUNT(AUTO) 4.84 MIL/uL (4.2-6.2)
[2019-02-22 11:27] LABS: ANION GAP 5 (5-15); CALCIUM 7.6 mg/dL (8.4-11.0); CHLORIDE 105 mmol/L (98-107); CREATININE 0.59 mg/dL (0.55-1.30); GLUCOSE 173 mg/dL (70-99); SODIUM SERUM 143 mmol/L (136-145); UREA NITROGEN, BLOOD 27 mg/dL (8-21)
[2019-02-22 11:28] LABS: EOSINOPHILS % (AUTO) 0.6 % (0.0-4.0); HEMATOCRIT 40.9 % (36-54); MEAN CORPUSCULAR HGB CONC 31 % (32-36); MEAN CORPUSCULAR VOLUME 85 fL (79.0-98.0); MONOCYTES # (AUTO) 0.7 K/uL (0.0-1.0); MONOCYTES % (AUTO) 5.8 % (1.7-9.3); NEUTROPHILS # (AUTO) 11.5 K/uL (1.8-7.7); NEUTROPHILS % (AUTO) 90.1 % (40.0-70.0); RED CELL DISTRIBUTION WIDTH 18.8 % (9.0-15.0); WHITE BLOOD COUNT (AUTO) 12.8 K/uL (4.8-10.8)
[2019-02-22 11:31] LABS: PLATELET COUNT (AUTO) 762 K/uL (130-430)
[2019-02-22 11:33] LABS: ALANINE AMINOTRANSFERASE 12 U/L (12-78); ALBUMIN 2.2 g/dL (3.4-4.8); ASPARTATE AMINOTRANSFERASE 15 U/L (10-37); TOTAL BILIRUBIN 0.4 mg/dL (0.0-1.0)
[2019-02-22 12:02] LABS: POTASSIUM 2.9 mmol/L (3.5-5.1)
[2019-02-22] MEDS ORDERED: POTASSIUM CHLORIDE 40 MEQ in NS 250 ML IV ONE (12:30)
[2019-02-22] MEDS: LORazepam 2 MG/ML VIAL IVP PRN (17:25)
--- NOTE | 2019-02-22 18:00 | NUR ---
Witnessed diprivan increased to 30 mcgs on the pump.
--- NOTE | 2019-02-22 18:00 | NUR ---
Nursing Note Patient appears agitated while on 25mcg/kg/min of Diprovan. IV catheter 18G on left forearm was noted outside of insertion site, IV fluid changed to other IV site. Diprovan titrated to 30mcg/kg/min as prescribed
--- NOTE | 2019-02-22 19:34 | NUR ---
Closing Note Patient report given to registry nurse NJ Sutton via SBAR communication
--- NOTE | 2019-02-22 20:00 | NUR ---
PATIENT WAS ACCEPTED AND ASSESS DONE , PATIENT ON VENT AND NOTICE PATIENT IS ON DIPRIVAN DRIP AND HAS ON SOFT WRIST RESTAINT , PATIENT HAS RASS OF 4 , WILL AWAKE WHEN BEING CARE FOR HAS AN GAG, RESPOND TO DEEP PAINFUL STIMULUS RIVERA NOT OPEN EYES, WERE SIZE TWO AND REATIVE TO LIGHT SLUGGISH, STABLE WILL TRIED TO WEAN THE PATIENT FROM THE VENT HAS AN TUBE FEEDING, TOLERATE WELL KWON INTACT WITH MACHO URINE STABLE AL IVF PATENT MARGARET PAIN 2300 NO CHANGES WITH CONDITION 02/23/19 PATIENT OPEN EYES WAS TRACKING LOOKING AT THE NURSE CARING FOR HIM MORE AWAKE NOW AND RESPOND TO SOME SIMPLE COMMANDS, STABLE ABLE TO MOVE ALL EXTREMITIES WELL NOTICE PATIENT IS REMAINED IN RESTRAINT , STABLE 0330 COMPLTED AM CARE WAS GIVEN TAKEN OUT OF RESTRAINT , WHEN TURNING TRIED TO HELP STABLE 0530 PATIENT HAD AN LARGE SOFT BROWN BM, CONSDITION STABLE MORE AWAKE MAY POSSIBLE TRIED TO WEAN FROM THE VENT , STABLE
[2019-02-22] MEDS: AZITHROMYCIN 500 MG in NS 250 ML IV SCH (22:01)
[2019-02-23] VITALS (34 sets, daily range): BP systolic 94–160
[2019-02-23] MEDS: LevALBUTEROL HCL 1.25 MG/0.5 ML *CONC.* VIAL.NEB (XOPENEX CONC.) INH SCH ×4 (02:05→19:38)
[2019-02-23] MEDS: IPRATROPIUM BROM 0.5 MG/2.5 ML VIAL.NEB (ATROVENT) INH SCH ×4 (02:07→19:38)
[2019-02-23 06:23] LABS: BASOPHILS # (AUTO) 0.1 K/uL (0.0-0.2); EOSINOPHILS # (AUTO) 0.1 K/uL (0.0-0.4); EOSINOPHILS % (AUTO) 0.7 % (0.0-4.0); HEMATOCRIT 39.5 % (36-54); HEMOGLOBIN 12.6 g/dL (14.0-18.0); LYMPHOCYTES # (AUTO) 0.6 K/uL (1.0-5.5); MEAN CORPUSCULAR HEMOGLOBIN 27 pg (27-31); MEAN CORPUSCULAR HGB CONC 32 % (32-36); MEAN CORPUSCULAR VOLUME 83 fL (79.0-98.0); MONOCYTES # (AUTO) 0.9 K/uL (0.0-1.0); MONOCYTES % (AUTO) 9.3 % (1.7-9.3); RED BLOOD CELL COUNT(AUTO) 4.74 MIL/uL (4.2-6.2); RED CELL DISTRIBUTION WIDTH 18.8 % (9.0-15.0); WHITE BLOOD COUNT (AUTO) 9.6 K/uL (4.8-10.8)
[2019-02-23 06:37] LABS: ANION GAP 5 (5-15); CALCIUM 7.2 mg/dL (8.4-11.0); CHLORIDE 106 mmol/L (98-107); GLUCOSE 175 mg/dL (70-99); SODIUM SERUM 144 mmol/L (136-145); UREA NITROGEN, BLOOD 28 mg/dL (8-21)
[2019-02-23 06:38] LABS: ALANINE AMINOTRANSFERASE 14 U/L (12-78); ALBUMIN 2.2 g/dL (3.4-4.8); ASPARTATE AMINOTRANSFERASE 20 U/L (10-37); TOTAL BILIRUBIN 0.2 mg/dL (0.0-1.0)
[2019-02-23 07:16] LABS: PLATELET COUNT (AUTO) 766 K/uL (130-430)
[2019-02-23] MEDS: BALSAM PERU/CASTOR OIL 60 GM OINT...G. TP SCH (09:00)
[2019-02-23] MEDS: APIXABAN 2.5 MG TABLET NG SCH ×2 (10:44→20:24)
[2019-02-23] MEDS: FAMOTIDINE 20 MG TABLET NG SCH ×2 (10:44→20:23)
[2019-02-23] MEDS: FUROSEMIDE 40 MG/4 ML VIAL IVP SCH ×3 (10:46→20:23)
--- NOTE | 2019-02-23 11:04 | NUR ---
1025 CHANGED VENT SETTINGS TO SIMV12, VT 500, PS 12, PEEP +5, FIO2 40% PER MD GARCIA.
[2019-02-23] MEDS ORDERED: POTASSIUM CHLORIDE 40 MEQ, LIDOCAINE JECT 2% PF 100 MG 75 MG in NS 250 ML IV ONE (11:15)
--- NOTE | 2019-02-23 14:07 | NUR ---
Nutrition Follow Up RD reviewed pt's current EMR including diet hx, physician notes, nursing notes, pertinent labs/meds/procedures, care trends and care activity. Admitting Diagnosis: respiratory failure Subjective Information: Pt remains intubated, no longer sedated. Pt awake and alert upon RD visit. Plans to wean off vent today per MD note. Last BM yesterday. TF running at bedside with 4ml enfused. Current Diet Order/Nutrition Support: Glucerna 1.5 at 50ml/hr with 100ml FWF Q6 via NGT x 3 days Provides: 1800kcal, 99gPro, 1300ml of free water Meets: 94%kcal and 110% lower end of est protein nutrition needs MEDS: Norepinephrine, Profol, Pepcid, Humulin insulin LABS: (02/23/19) K: 3.0L, POC: 157H, 162H, 152H Estimated Energy Expenditure (kcals/day) 1920kcal/day (MSJ x 1.3 x 1.4 based on critical illness/sepsis) Estimated Protein Required (g/day) 90-150g/day (1.2-2g/kg based on IBW for wound healing) Estimated Fluid Required (l/day) Deferred to MD d/t CKD Problem/Etiology/Signs/Symptoms Increased nutrient needs related to increased metabolic demands as evidenced by sepsis *ongoing* Expected Outcomes/Goals Monitor EN tolerance and intake w/ goal of pt meeting at least 75% of estimated nutritional needs, labs trending WNL, normal GI function, skin integrity/wt maintenance. Dietitian Recommendations *Continue Glucerna 1.5 at 50ml/hr and 100ml FWF Q6h *Provides: 1800kcal, 99gPro, 1300ml of free water *Meets: 94%kcal and 110% lower end of est protein nutrition needs Follow Up High Risk: F/U in 2-3days
--- NOTE | 2019-02-23 14:13 | NUR ---
Dietitian Recommendations *Continue Glucerna 1.5 at 50ml/hr and 100ml FWF Q6h *Provides: 1800kcal, 99gPro, 1300ml of free water *Meets: 94%kcal and 110% lower end of est protein nutrition needs Please see Nutrition Follow Up for further details. LT, RD
--- NOTE | 2019-02-23 19:30 | NUR ---
PM ASSESSMENT REPORT RECEIVED FROM AM RN. PT RECEIVED IN BED WITH EYES OPEN, RESPONDING TO VERBAL STIMULATION. VSS, NO S/S OF ACUTE DISTRESS NOTED. PT INTUBATED, VENT SETTINGS: SIMV 12, TV 500, FIO2 40%, PEEP 5, PS 12. A-FIB ON MONITOR. BILATERAL SOFT WRIST RESTRAINTS IN PLACE, NO S/S OF INJURY NOTED. LAC 18G INFUSING 1/2 NS @ 40 CC/HR. OGT IN PLACE RUNNING GLUCERNA TF @ 50 CC/HR. KWON CATH IN PLACE DRAINING URINE TO GRAVITY. HOB ELEVATED, BED IN LOWEST POSITION, CALL LIGHT IN REACH, WILL CONTINUE TO MONITOR PT.
[2019-02-23] MEDS: HYDROCORTISONE SOD SUCC 100 MG/2 ML VIAL IVP SCH (20:19)
[2019-02-23] MEDS: 0.45% NACL 1,000 ML IV SCH (20:25)
[2019-02-23] MEDS: PIPERACILLIN/TAZO 2.25G/DEX-IS 50 ML IV SCH (20:58)
[2019-02-24] VITALS (34 sets, daily range): BP systolic 98–151
--- NOTE | 2019-02-24 02:30 | NUR ---
BM PT HAD SMALL AMOUNT OF SOFT BROWN STOOL AT THIS TIME. SACRAL DRESSING SOILED. AMARA CARE PROVIDED AND LINENS CHANGED. DRESSING CHANGED. PT TOLERATED WELL. WILL CONTINUE TO MONITOR PT.
[2019-02-24] MEDS: LevALBUTEROL HCL 1.25 MG/0.5 ML *CONC.* VIAL.NEB (XOPENEX CONC.) INH SCH ×4 (02:43→20:04)
[2019-02-24] MEDS: IPRATROPIUM BROM 0.5 MG/2.5 ML VIAL.NEB (ATROVENT) INH SCH ×4 (02:43→20:04)
[2019-02-24] MEDS: PIPERACILLIN/TAZO 2.25G/DEX-IS 50 ML IV SCH ×3 (05:21→21:15)
[2019-02-24 07:00] LABS: BASOPHILS # (AUTO) 0.1 K/uL (0.0-0.2); BASOPHILS % (AUTO) 0.5 % (0.0-2.0); EOSINOPHILS # (AUTO) 0.2 K/uL (0.0-0.4); EOSINOPHILS % (AUTO) 1.4 % (0.0-4.0); HEMATOCRIT 38.3 % (36-54); LYMPHOCYTES # (AUTO) 0.9 K/uL (1.0-5.5); LYMPHOCYTES % (AUTO) 7.2 % (20.5-51.5); MEAN CORPUSCULAR HEMOGLOBIN 27 pg (27-31); MEAN CORPUSCULAR HGB CONC 31 % (32-36); MEAN CORPUSCULAR VOLUME 84 fL (79.0-98.0); MONOCYTES # (AUTO) 1.4 K/uL (0.0-1.0); MONOCYTES % (AUTO) 11.9 % (1.7-9.3); NEUTROPHILS # (AUTO) 9.4 K/uL (1.8-7.7); PLATELET COUNT (AUTO) 664 K/uL (130-430); RED BLOOD CELL COUNT(AUTO) 4.55 MIL/uL (4.2-6.2); WHITE BLOOD COUNT (AUTO) 11.9 K/uL (4.8-10.8)
--- NOTE | 2019-02-24 07:38 | NUR ---
ENDORSEMENT BEDSIDE REPORT GIVEN TO AM RN USING SBAR APPROACH.
[2019-02-24 07:42] LABS: ALANINE AMINOTRANSFERASE 23 U/L (12-78); ALBUMIN 2.1 g/dL (3.4-4.8); ANION GAP 0 (5-15); ASPARTATE AMINOTRANSFERASE 25 U/L (10-37); CALCIUM 7.5 mg/dL (8.4-11.0); CHLORIDE 106 mmol/L (98-107); CREATININE 0.65 mg/dL (0.55-1.30); GLUCOSE 152 mg/dL (70-99); POTASSIUM 3.2 mmol/L (3.5-5.1); SODIUM SERUM 142 mmol/L (136-145); TOTAL BILIRUBIN 0.3 mg/dL (0.0-1.0); UREA NITROGEN, BLOOD 31 mg/dL (8-21)
--- NOTE | 2019-02-24 08:00 | NUR ---
Received patient asleep after getting report from assigned night nurse. Presenting to be in no distress at this time. Noted IVF infusing via left upper arm IV site, without difficulty of any noted. Safety measures observed as well. Will continue to maintain care as ordered.
[2019-02-24] MEDS: FAMOTIDINE 20 MG TABLET NG SCH ×2 (09:49→21:15)
[2019-02-24] MEDS: APIXABAN 2.5 MG TABLET NG SCH ×2 (09:51→21:17)
[2019-02-24] MEDS: HYDROCORTISONE SOD SUCC 100 MG/2 ML VIAL IVP SCH ×2 (09:52→21:19)
[2019-02-24] MEDS: BALSAM PERU/CASTOR OIL 60 GM OINT...G. TP SCH (09:53)
[2019-02-24] MEDS: FUROSEMIDE 40 MG/4 ML VIAL IVP SCH ×3 (09:54→21:20)
[2019-02-24] MEDS ORDERED: POTASSIUM CHLORIDE 20 MEQ/PKT PACKET NG ONE (10:00)
[2019-02-24] MEDS ORDERED: POTASSIUM CHLORIDE 40 MEQ, LIDOCAINE JECT 2% PF 100 MG 75 MG in NS 250 ML IV ONE (11:00)
--- NOTE | 2019-02-24 12:00 | NUR ---
Care continue at this time with feeding being tolerated. IV site maintained as well. Sheppard catheter putting out q.s. amount of clear yellow colored urine. No distress presents to be present at this time. Will continue care accordingly.
--- NOTE | 2019-02-24 18:00 | NUR ---
Condition/assessment remains without change. Shift at this time remains uneventful.
--- NOTE | 2019-02-24 19:25 | NUR ---
OPENING NOTE SBAR REPORTED RECEIVED FROM RN DORIAN. ASSUMED CARE OF PATIENT. PT LAYING IN BED. PT AWAKE, ALERT AND FOLLOWS COMMANDS. PT INTUBATED. ETT TUBE 7.5 LIP LINE 24. VENT SETTING SIMV 12, TIDAL VOLUME 500, FiO2 40%, PEEP 5. PT TOLERATING VENT SETTINGS WELL. . PT RESPIRATIONS EQUAL AND UNLABORED. LUNG SOUNDS DIMINISHED IN BILATERAL BASES AND CLEAR IN UPPER LOBES. PT ATRIAL FIBRILLATION ON THE MONITOR. NO EDEMA NOTED. RADIAL AND PEDAL PULSES PRESENT, STRONG AND EQUAL. PT HAS WOUND TO SACRAL AREA AND POSTERIOR LEFT THIGH WITH FOAM DRESSING IN PLACE. PT HAS REDNESS TO BILATERAL HEELS AND WOUND TO 2ND TOE ON LEFT FOOT. DRESSING CLEAN DRY AND INTACT. PT ABDOMEN SOFT AND NON DISTENDED. BOWEL SOUNDS ACTIVE. KWON CATHETER DRAINING TO GRAVITY IN PLACE. BED LOCKED IN LOWEST POSITION. SAFETY PRECAUTIONS IN PLACE. CALL LIGHT WITHIN REACH. WILL CONTINUE TO MONITOR.
[2019-02-24] MEDS: 0.45% NACL 1,000 ML IV SCH (23:34)
[2019-02-25] VITALS (28 sets, daily range): BP systolic 108–130
[2019-02-25] MEDS: LevALBUTEROL HCL 1.25 MG/0.5 ML *CONC.* VIAL.NEB (XOPENEX CONC.) INH SCH ×4 (01:17→19:48)
[2019-02-25] MEDS: IPRATROPIUM BROM 0.5 MG/2.5 ML VIAL.NEB (ATROVENT) INH SCH ×4 (01:17→19:49)
--- NOTE | 2019-02-25 02:30 | NUR ---
RN UPDATE DRESSING TO WOUND OF LEFT 2ND TOE REMOVED. TOE NOW PURPLE. NO FOUL ODOR NOTED. PHOTOGRAPH TAKEN. WILL CONTINUE TO MONITOR.
[2019-02-25] MEDS: PIPERACILLIN/TAZO 2.25G/DEX-IS 50 ML IV SCH ×3 (05:19→22:53)
[2019-02-25 06:10] LABS: BASOPHILS # (AUTO) 0.1 K/uL (0.0-0.2); BASOPHILS % (AUTO) 0.9 % (0.0-2.0); EOSINOPHILS # (AUTO) 0.1 K/uL (0.0-0.4); EOSINOPHILS % (AUTO) 0.5 % (0.0-4.0); HEMATOCRIT 39.9 % (36-54); HEMOGLOBIN 12.3 g/dL (14.0-18.0); LYMPHOCYTES # (AUTO) 0.7 K/uL (1.0-5.5); LYMPHOCYTES % (AUTO) 4.1 % (20.5-51.5); MEAN CORPUSCULAR HEMOGLOBIN 26 pg (27-31); MEAN CORPUSCULAR HGB CONC 31 % (32-36); MEAN CORPUSCULAR VOLUME 84 fL (79.0-98.0); MONOCYTES # (AUTO) 1.1 K/uL (0.0-1.0); MONOCYTES % (AUTO) 6.4 % (1.7-9.3); NEUTROPHILS # (AUTO) 14.8 K/uL (1.8-7.7); NEUTROPHILS % (AUTO) 88.1 % (40.0-70.0); PLATELET COUNT (AUTO) 614 K/uL (130-430); RED BLOOD CELL COUNT(AUTO) 4.74 MIL/uL (4.2-6.2); RED CELL DISTRIBUTION WIDTH 19.2 % (9.0-15.0); WHITE BLOOD COUNT (AUTO) 16.9 K/uL (4.8-10.8)
[2019-02-25 06:32] LABS: ALANINE AMINOTRANSFERASE 25 U/L (12-78); ALBUMIN 2.3 g/dL (3.4-4.8); ANION GAP 3 (5-15); ASPARTATE AMINOTRANSFERASE 24 U/L (10-37); CALCIUM 7.7 mg/dL (8.4-11.0); CHLORIDE 107 mmol/L (98-107); CREATININE 0.65 mg/dL (0.55-1.30); GLUCOSE 156 mg/dL (70-99); POTASSIUM 3.1 mmol/L (3.5-5.1); SODIUM SERUM 144 mmol/L (136-145); TOTAL BILIRUBIN 0.3 mg/dL (0.0-1.0); UREA NITROGEN, BLOOD 28 mg/dL (8-21)
--- NOTE | 2019-02-25 07:30 | NUR ---
Opening Note Received plan of care via sbar from endorsing nurse Watts. Completed patient round.
--- NOTE | 2019-02-25 07:30 | NUR ---
0730 PT PLACED ON WEANING PARAMETERS OF SIMV4, VT500, FIO2 .40, PS10, +[address] AWAD ABG WILL BE DRAWN AT 0830 Addendum: 02/25/19 at 0758 by Jaylene Sevilla RT Amended: Links added.
--- NOTE | 2019-02-25 07:31 | NUR ---
CLOSING NOTE PT LAYING IN BED. NO SIGNS OR SYMPTOMS OF DISTRESS. SBAR REPORT GIVEN TO ROBERT MAURO. CARE ENDORSED.
[2019-02-25] MEDS: HYDROCORTISONE SOD SUCC 100 MG/2 ML VIAL IVP SCH (08:11)
[2019-02-25] MEDS: FUROSEMIDE 40 MG/4 ML VIAL IVP SCH ×3 (08:12→20:23)
[2019-02-25] MEDS: BALSAM PERU/CASTOR OIL 60 GM OINT...G. TP SCH (08:13)
[2019-02-25] MEDS: FAMOTIDINE 20 MG TABLET NG SCH ×2 (08:13→20:22)
[2019-02-25] MEDS: APIXABAN 2.5 MG TABLET NG SCH ×2 (08:14→20:24)
--- NOTE | 2019-02-25 08:45 | NUR ---
Dr. Carrion at bedside. Received orders for ABG and pending results patient maybe extubated.
--- NOTE | 2019-02-25 09:10 | NUR ---
Received ABGs from RT Calabrese. Provided results to Dr. Carrion and received orders for extubation, place on 3L NC, ABG 1 hour post extubation, remove OG tube and keep NPO for now.
--- NOTE | 2019-02-25 09:25 | NUR ---
0925 EXTUBATED PT, PLACED ON 3L O2, SATING 96-97, WITH CO2 OF 41. NO DISTRESS NOTED. Addendum: 02/25/19 at 1005 by Jaylene Sevilla RT Amended: Links added.
--- NOTE | 2019-02-25 09:30 | NUR ---
Patient extubated. Removed restraints.
--- NOTE | 2019-02-25 09:30 | NUR ---
Dr. Tabor at bedside. Provided K results 3.1. Received orders for K rider but Dr. Tabor will enter order.
[2019-02-25] MEDS ORDERED: POTASSIUM CHLORIDE 40 MEQ, LIDOCAINE JECT 2% PF 100 MG 75 MG in NS 250 ML IV ONE (09:45)
--- NOTE | 2019-02-25 10:10 | NUR ---
Dr. Agee at bedside. Received orders for PT evaluation, Swallow evaluation, and NS @ 70 CCs/hr.
--- NOTE | 2019-02-25 10:15 | NUR ---
Called Keeley Chou at [phone] with a swallow eval, left message on voice mail.
[2019-02-25] MEDS: NACL 0.9% 1,000 ML IV SCH (10:33)
--- NOTE | 2019-02-25 11:30 | NUR ---
Called Dr. Carrion to provide report of ABG post extubation. Left message with exchange.
--- NOTE | 2019-02-25 16:53 | NUR ---
Insurance Adjuster: met with pt to conduct a DCPA SENIOR DATA WAREHOUSE DEVELOPER went back to meet with pt. as first time he was sleeping. Pt was not able to verbalize clearly and was having a hard time speaking. As per notes he was extabated on 02/25, earlier in the day. Pt was ok with SENIOR DATA WAREHOUSE DEVELOPER calling his daughter Yanci up to gather info. Pt. said he wants SENIOR DATA WAREHOUSE DEVELOPER to call her to tell her to come to see him. SENIOR DATA WAREHOUSE DEVELOPER stated Rn. Wray said daughter Yanci and her partner, Darrell came to see him one day. Pt. said he did not recall. He added he wants Divine to call the livestock trader as he had 70 million and need a corporate director of pharmacy to be involved as well as SENIOR DATA WAREHOUSE DEVELOPER. SENIOR DATA WAREHOUSE DEVELOPER will call daughter on Thursday.
--- NOTE | 2019-02-25 19:25 | NUR ---
Closing Note Provided plan of care via sbar to receiving nurse Sajan MAURO. Completed patient round.
--- NOTE | 2019-02-25 19:50 | NUR ---
opening note. Received patient from day shift RN. Awake and with periods of forgetfulness as patient starts to removing O2 and requiring frequent reorientation to comply with nurses requests. Able to follow commands. Upon auscultation, respiratory effort is unlabored with symmetrical chest rising. Orders to keep patient NPO until morning as patient has become frustrated for not being able to have water or food. After education patient has become more cooperative. IV sites in place and no signs of infiltration noted. LFA 18 g with IVF infusing. Sheppard catheter in place and secured with leg device draining urine to gravity. Bed locked in lowest position. Call light within reach. Safety precautions in place. will continue to monitor.
[2019-02-26] VITALS (16 sets, daily range): BP systolic 108–168
--- NOTE | 2019-02-26 | NUR ---
PATIENT AWAKE AND COOPERATIVE. DENIES PAIN OR DISCOMFORT AT THIS TIME. NO SIGNS OF DISTRESS NOTED. REPOSITIONED FOR COMFORT. VSS STABLE. WILL CONTINUE TO MONITOR.
[2019-02-26] MEDS: NACL 0.9% 1,000 ML IV SCH ×2 (00:33→06:01)
[2019-02-26] MEDS: LevALBUTEROL HCL 1.25 MG/0.5 ML *CONC.* VIAL.NEB (XOPENEX CONC.) INH SCH ×4 (01:38→20:11)
[2019-02-26] MEDS: IPRATROPIUM BROM 0.5 MG/2.5 ML VIAL.NEB (ATROVENT) INH SCH ×4 (01:38→20:10)
--- NOTE | 2019-02-26 04:00 | NUR ---
WOUND DRESSING Awake and cooperative with dressing change. Wound dressing completed to right and left sacral wounds using optifoam sacral and to right posterior thigh following orders from shipping specialist. patient tolerated procedure well. repositioned for comfort and call light within reach. will continue to monitor.
[2019-02-26] MEDS: PIPERACILLIN/TAZO 2.25G/DEX-IS 50 ML IV SCH ×3 (05:41→22:05)
[2019-02-26 06:13] LABS: BASOPHILS # (AUTO) 0.1 K/uL (0.0-0.2); BASOPHILS % (AUTO) 0.7 % (0.0-2.0); EOSINOPHILS # (AUTO) 0.3 K/uL (0.0-0.4); EOSINOPHILS % (AUTO) 1.7 % (0.0-4.0); HEMATOCRIT 41.1 % (36-54); HEMOGLOBIN 12.9 g/dL (14.0-18.0); LYMPHOCYTES # (AUTO) 1.1 K/uL (1.0-5.5); LYMPHOCYTES % (AUTO) 6.2 % (20.5-51.5); MEAN CORPUSCULAR HEMOGLOBIN 27 pg (27-31); MEAN CORPUSCULAR HGB CONC 31 % (32-36); MEAN CORPUSCULAR VOLUME 85 fL (79.0-98.0); MONOCYTES # (AUTO) 1.3 K/uL (0.0-1.0); MONOCYTES % (AUTO) 7.2 % (1.7-9.3); NEUTROPHILS # (AUTO) 14.8 K/uL (1.8-7.7); NEUTROPHILS % (AUTO) 84.2 % (40.0-70.0); PLATELET COUNT (AUTO) 550 K/uL (130-430); RED BLOOD CELL COUNT(AUTO) 4.85 MIL/uL (4.2-6.2); RED CELL DISTRIBUTION WIDTH 19.2 % (9.0-15.0); WHITE BLOOD COUNT (AUTO) 17.6 K/uL (4.8-10.8)
[2019-02-26 06:42] LABS: ALANINE AMINOTRANSFERASE 30 U/L (12-78); ALBUMIN 2.4 g/dL (3.4-4.8); ANION GAP 5 (5-15); ASPARTATE AMINOTRANSFERASE 21 U/L (10-37); CALCIUM 7.9 mg/dL (8.4-11.0); CHLORIDE 106 mmol/L (98-107); GLUCOSE 90 mg/dL (70-99); SODIUM SERUM 147 mmol/L (136-145); TOTAL BILIRUBIN 0.5 mg/dL (0.0-1.0); UREA NITROGEN, BLOOD 21 mg/dL (8-21)
--- NOTE | 2019-02-26 07:02 | NUR ---
closing note awake and following commands. no signs of distress or pain noted or reported. ivf infusing; no signs of infiltration noted. will continue to monitor.
--- NOTE | 2019-02-26 07:10 | NUR ---
Endorsement Report given oncoming RN at bedside via SBAR approach.
--- NOTE | 2019-02-26 08:00 | NUR ---
@0730 Assumed pt care from Sajan and TRINH RNS met pt awake alert but confused anxious for water, reorientation assured support needs reinforcement, vitals signs stable afebrile denies pain will continue to monitor and treat as per care plan.
[2019-02-26] MEDS ORDERED: KCL 40 mEq in 100 mL (PREMIX) 100 ML IV ONE (10:00)
[2019-02-26] MEDS ORDERED: POTASSIUM CHLORIDE 40 MEQ in NS 250 ML IV ONE (10:15)
[2019-02-26] MEDS: FAMOTIDINE 20 MG TABLET NG SCH ×2 (10:41→21:58)
[2019-02-26] MEDS: APIXABAN 2.5 MG TABLET NG SCH ×2 (10:42→21:59)
[2019-02-26] MEDS: FUROSEMIDE 40 MG/4 ML VIAL IVP SCH ×3 (10:44→22:00)
[2019-02-26] MEDS: BALSAM PERU/CASTOR OIL 60 GM OINT...G. TP SCH (10:44)
--- NOTE | 2019-02-26 11:00 | NUR ---
ST swallow evaluation Pt at elevate risk of silent aspiration 2/2 COPD, advanced age and length of endotracheal intubation. At bedside no obvious s/s of airway compromise, pt alert and appropriate. Recommend initiate trial diet of Puree, Gro[employer]pring thick liquids by tsp, then advance to Puree with thin liquids by tsp if he remains stable. ST will follow briefly. D/w [place] Wiley.
--- NOTE | 2019-02-26 12:20 | NUR ---
RECEIVED PT FROM ICU Received report from LAND LEASE INFORMATION CLERK. Pt now resting quietly in bed with no s/s resp distress, no c/o pain or discomfort. Pt placed on telemetry showing A Fib. Pt placed on O2 3L via NC. Aspiration, skin and safety precautions in place. Pt across from nursing station for safety.
--- NOTE | 2019-02-26 12:44 | NUR ---
@1115 Completed swallowed evaluation at the bedside by DORIAN speech therapist. Dr Toney Agee was here and order received to transfer pt to telemetry. @1155 Dr London schmidts updates at the bedside no new order received. @1158 Bedside report given to Kelsi MAURO SBAR @1208 PT transfered to room 112 awake alert confused but follows command vitals signs stable
--- NOTE | 2019-02-26 13:00 | NUR ---
INITIAL NOTE Patient resting in the bed. No acute distress. On O2 3L/min via NC. Skin warm and dry to touch. IV intact to RFA, no redness, no swelling, no drainage, infusing k-rider well. F/C intact, drain gravity. Safety measure maintained. Call light within reached. Bed locked in low position, side rails up, bed alarm on. Continue to monitor.
--- NOTE | 2019-02-26 14:00 | NUR ---
SEEN AND EXAMINED BY ADRIÁN PAYNE.
--- NOTE | 2019-02-26 16:12 | NUR ---
ROUND Patient resting in the bed. No acute distress. Continue on O2 3L/min via NC. IV intact, IVF infusing well. F/C intact, drain gravity. Safety measure maintained. Call light within reached. Bed locked in low position, side rails up, bed alarm on. Continue to monitor.
--- NOTE | 2019-02-26 18:05 | NUR ---
OM=158 No insulin coverage needed per sliding scale.
--- NOTE | 2019-02-26 18:59 | NUR ---
CLOSING NOTE Patient resting in the bed. No acute distress. On O2 3L/min via NC. Skin warm and dry to touch. IV intact to RFA, no redness, no swelling, no drainage, IVF infusing well. F/C intact, drain gravity. All needs met. Safety measure maintained. Call light within reached. Bed locked in low position, side rails up, bed alarm on. Will endorse to night nurse.
--- NOTE | 2019-02-26 19:30 | NUR ---
OPENING NOTES PATIENT IS STABLE AND IN BED. NO S/S OF RESPIRATORY DISTRESS NOTED. PLAN OF CARE DISCUSSED WITH PATIENT AT THIS TIME. PATIENT UNSUCCESSFULLY DEMONSTRATES USAGE OF CALL LIGHT AT THIS TIME. WILL MONITOR FREQUENTLY. FALL, SAFETY, ASPIRATION, AND RESPIRATORY PRECAUTIONS WILL BE PLACED THROUGHOUT THE SHIFT.
--- NOTE | 2019-02-26 21:30 | NUR ---
ROUNDING/DRESSING CHANGE PATIENT HAD DIARRHEA AT THIS TIME. PATIENT WAS CLEANED. WOUND CARE WAS DONE AT THIS TIME. PATIENT TOLERATED WELL. NO S/S OF RESPIRATORY DISTRESS NOTED. PATIENT WAS REPOSITION FOR COMFORT. PATIENT IS STABLE. CALL LIGHT IN REACH. BED IS LOCKED, ALARMED, AND AT THE LOWEST POSITION. WILL CONTINUE TO MONITOR.
--- NOTE | 2019-02-26 23:30 | NUR ---
ROUNDING PATIENT IS LAYING IN BED AND STABLE. NO S/S OF RESPIRATORY DISTRESS NOTED. CALL LIGHT IN REACH. BED IS LOCKED, ALARMED, AND AT THE LOWEST POSITION. WILL CONTINUE TO MONITOR.
[2019-02-27] MEDS: NACL 0.9% 1,000 ML IV SCH ×2 (00:24→22:08)
[2019-02-27 00:51] VITALS: BP_SYST 124
[2019-02-27] MEDS: LevALBUTEROL HCL 1.25 MG/0.5 ML *CONC.* VIAL.NEB (XOPENEX CONC.) INH SCH ×4 (01:48→19:40)
[2019-02-27] MEDS: IPRATROPIUM BROM 0.5 MG/2.5 ML VIAL.NEB (ATROVENT) INH SCH ×4 (01:48→19:40)
--- NOTE | 2019-02-27 05:30 | NUR ---
rounding PATIENT IS SLEEPING AND STABLE. NO S/S OF RESPIRATORY DISTRESS. WILL CONTINUE TO MONITOR.
[2019-02-27] MEDS: PIPERACILLIN/TAZO 2.25G/DEX-IS 50 ML IV SCH ×3 (05:35→22:06)
--- NOTE | 2019-02-27 06:34 | NUR ---
CLOSING NOTES PATIENT IS STABLE AND IN BED. CHEST XRAY CAME TO TAKE A PICTURE. PATIENT EDUCATED ON IMPORTANCE OF XRAY. PATIENT IS REPOSITION FOR COMFORT. NO S/S OF RESPIRATORY DISTRESS NOTED. CALL LIGHT IN REACH. BED IS LOCKED, ALARMED, AND AT THE LOWEST POSITION. REORIENTED PATIENT AT THIS TIME. FALL, SAFETY, ASPIRATION, AND RESPIRATORY PRECAUTIONS HAS BEEN PLACED THROUGHOUT THE SHIFT. WILL CONTINUE TO MONITOR UNTIL REPORT IS GIVEN TO AM NURSE BY BEDSIDE.
--- NOTE | 2019-02-27 07:39 | NUR ---
OPENING NOTE Patient resting in the bed with eyes closed. No acute distress. On O2 3L/min via NC. Skin warm and dry to touch. IV intact to RFA, no redness, no swelling, no drainage, on NS at 70ml/hr, infusing well. F/C intact, drain gravity. Safety measure maintained. Call light within reached. Bed locked in low position, side rails up, bed alarm on. Will continue to monitor.
[2019-02-27 07:40] LABS: BASOPHILS # (AUTO) 0.1 K/uL (0.0-0.2); BASOPHILS % (AUTO) 0.7 % (0.0-2.0); EOSINOPHILS # (AUTO) 0.5 K/uL (0.0-0.4); EOSINOPHILS % (AUTO) 2.7 % (0.0-4.0); HEMATOCRIT 41.7 % (36-54); HEMOGLOBIN 13.1 g/dL (14.0-18.0); LYMPHOCYTES # (AUTO) 0.7 K/uL (1.0-5.5); LYMPHOCYTES % (AUTO) 4.2 % (20.5-51.5); MEAN CORPUSCULAR HEMOGLOBIN 27 pg (27-31); MEAN CORPUSCULAR HGB CONC 31 % (32-36); MEAN CORPUSCULAR VOLUME 85 fL (79.0-98.0); MONOCYTES # (AUTO) 1.4 K/uL (0.0-1.0); MONOCYTES % (AUTO) 8.1 % (1.7-9.3); NEUTROPHILS # (AUTO) 14.9 K/uL (1.8-7.7); NEUTROPHILS % (AUTO) 84.3 % (40.0-70.0); PLATELET COUNT (AUTO) 536 K/uL (130-430); RED BLOOD CELL COUNT(AUTO) 4.92 MIL/uL (4.2-6.2); RED CELL DISTRIBUTION WIDTH 19.6 % (9.0-15.0); WHITE BLOOD COUNT (AUTO) 17.7 K/uL (4.8-10.8)
[2019-02-27 07:55] VITALS: BP_SYST 122
[2019-02-27 08:01] LABS: ALANINE AMINOTRANSFERASE 29 U/L (12-78); ALBUMIN 2.3 g/dL (3.4-4.8); ANION GAP 3 (5-15); ASPARTATE AMINOTRANSFERASE 19 U/L (10-37); CHLORIDE 103 mmol/L (98-107); GLUCOSE 113 mg/dL (70-99); SODIUM SERUM 140 mmol/L (136-145); TOTAL BILIRUBIN 0.5 mg/dL (0.0-1.0); UREA NITROGEN, BLOOD 18 mg/dL (8-21)
[2019-02-27 08:32] LABS: POTASSIUM 2.6 mmol/L (3.5-5.1)
--- NOTE | 2019-02-27 08:50 | NUR ---
MD ILENE DE LOS SANTOS CALLED AT SPOKE WITH DR.REDDY HOGUE MALLU AIRCRAFT STRESS ANALYST.
--- NOTE | 2019-02-27 08:50 | NUR ---
K=2.6 Called Mickey Delong exchange regarding the potassium level, waited to call back.
--- NOTE | 2019-02-27 09:31 | NUR ---
DR. SARAVIA, MALLU IN THE UNIT,REPORTED THE POTASSIUM=2.6, WITH ORDER RECEIVED.
[2019-02-27] MEDS ORDERED: POTASSIUM CHLORIDE 20 MEQ TAB.PRT.SR PO ONE (09:45)
[2019-02-27] MEDS: FUROSEMIDE 40 MG/4 ML VIAL IVP SCH ×3 (10:02→22:08)
[2019-02-27] MEDS: APIXABAN 2.5 MG TABLET NG SCH ×2 (10:04→22:07)
[2019-02-27] MEDS: FAMOTIDINE 20 MG TABLET NG SCH ×2 (10:04→22:08)
[2019-02-27] MEDS: BALSAM PERU/CASTOR OIL 60 GM OINT...G. TP SCH ×2 (10:05→22:20)
[2019-02-27] MEDS ORDERED: POTASSIUM CHLORIDE 40 MEQ in NS 250 ML IV ONE (10:30)
--- NOTE | 2019-02-27 11:25 | NUR ---
ROUND Patient resting in the bed with eyes closed. No acute distress. Continue on O2 via NC. IV intact, IVF infusing well. F/C intact, drain gravity. Safety measure maintained. Call light within reached. Bed locked in low position, side rails up, bed alarm on. Continue to monitor.
[2019-02-27] MEDS: INSULIN REGULAR, HUMAN 100 UNITS/ML, 10 ML VIAL (humuLIN R) SUBCUT PRN ×2 (12:24→17:47)
--- NOTE | 2019-02-27 12:25 | NUR ---
FB=008 Humulin R insulin 2 units given per sliding scale as ordered for NV=467. Patient sitting up for lunch at this time. No acute distress. Continue on O2 via NC. Safety measure maintained. Call light within reached. Continue to monitor.
[2019-02-27 12:50] VITALS: BP_SYST 132
--- NOTE | 2019-02-27 15:20 | NUR ---
ROUND Patient resting in the bed with eyes closed. No acute distress. Continue on O2 via NC. IV intact, IVF infusing well. Safety measure maintained. Call light within reached. Bed locked in low position, side rails up, bed alarm on. Continue to monitor.
[2019-02-27 16:21] VITALS: BP_SYST 128
--- NOTE | 2019-02-27 16:26 | NUR ---
Nutrition F/U (short note d/t high patient load) RD reviewed pt's current EMR including diet Hx, physician notes, nursing notes, pertinent labs/meds/procedures, care trends, and care activity. Current Diet Order: Puree x1 day Pt was seen resting in bed w/ MANAGER UTILITY providing care at bedside. She reported that pt did not eat much at lunch today -- lunch tray visualized outside of room w/ less than 25% eaten. pt had ST swallow eval 02/26/19; ST rec for puree diet. Pt would benefit from Rakesh BID for wound healing. Pt remains at high nutritional risk; F/U within 2-3 days.
[2019-02-27 16:41] VITALS: BP_SYST 116
--- NOTE | 2019-02-27 16:53 | NUR ---
TYLENOL GIVEN Patient c/o generalized pain 05/09, Tylenol 650mg PO given as ordered. No acute distress. Continue on O2 via NC. IV intact, IVF infusing well. Safety measure maintained. Call light within reached. Bed locked in low position, side rails up, bed alarm on. Continue to monitor.
[2019-02-27 19:30] VITALS: BP_SYST 123
--- NOTE | 2019-02-27 19:30 | NUR ---
INITIAL NOTES PATIENT IS LAYING IN BED AND STABLE. NO S/S OF RESPIRATORY DISTRESS NOTED. PATIENT UNSUCCESSFULLY DEMONSTRATES USAGE OF CALL LIGHT AT THIS TIME. WILL MONITOR FREQUENTLY. CALL LIGHT IN REACH. BED IS LOCKED, ALARMED, AND AT THE LOWEST POSITION. PLAN OF CARE DISCUSSED WITH PATIENT AT THIS TIME. FALL, SAFETY, ASPIRATION, AND RESPIRATORY PRECAUTIONS WILL BE PLACED THROUGHOUT THE SHIFT.
--- NOTE | 2019-02-27 21:30 | NUR ---
ROUNDING PATIENT IS STABLE AND RESTING IN BED. NO S/S OF RESPIRATORY DISTRESS NOTED. CALL LIGHT IN REACH. WILL CONTINUE TO MONITOR.
--- NOTE | 2019-02-27 22:01 | NUR ---
BOWEL MOVEMENT/WOUND CARE PATIENT HAD A BOWEL MOVEMENT. CHANGED. NEW LINENS GIVEN. REPOSITION FOR COMFORT. WOUND CARE IN THE SACRAL AREA WAS DONE AT THIS TIME WELL. PATIENT TOLERATED WELL. WILL CONTINUE TO MONITOR.
--- NOTE | 2019-02-28 00:01 | NUR ---
ROUNDING PATIENT IS SLEEPING IN BED AND STABLE. NO S/S OF RESPIRATORY DISTRESS NOTED. CALL LIGHT IN REACH. BED IS LOCKED, ALARMED, AND AT THE LOWEST POSITION. WILL CONTINUE TO MONITOR.
[2019-02-28] MEDS: LevALBUTEROL HCL 1.25 MG/0.5 ML *CONC.* VIAL.NEB (XOPENEX CONC.) INH SCH ×4 (01:07→19:00)
[2019-02-28] MEDS: IPRATROPIUM BROM 0.5 MG/2.5 ML VIAL.NEB (ATROVENT) INH SCH ×4 (01:07→18:59)
[2019-02-28 01:38] VITALS: BP_SYST 123
--- NOTE | 2019-02-28 02:01 | NUR ---
ROUNDING PATIENT IS LAYING IN BED AND STABLE. NO S/S OF RESPIRATORY DISTRESS NOTED. CALL LIGHT IN REACH. WILL CONTINUE TO MONITOR.
--- NOTE | 2019-02-28 04:01 | NUR ---
ROUNDING PATIENT IS SLEEPING IN BED AND STABLE. NO S/S OF RESPIRATORY DISTRESS NOTED. CALL LIGHT IN REACH. WILL CONTINUE TO MONITOR.
[2019-02-28] MEDS: PIPERACILLIN/TAZO 2.25G/DEX-IS 50 ML IV SCH ×3 (06:00→21:13)
--- NOTE | 2019-02-28 06:01 | NUR ---
CLOSING NOTES PATIENT IS LAYING IN BED AND STABLE. NO S/S OF RESPIRATORY DISTRESS NOTED. CALL LIGHT IN REACH. BED IS LOCKED, ALARMED, AND AT THE LOWEST POSITION. FALL, SAFETY, ASPIRATION AND RESPIRATORY PRECAUTIONS HAS BEEN PLACED THROUGHOUT THE SHIFT. WILL CONTINUE TO MONITOR UNTIL AM REPORT IS GIVEN TO AM NURSE.
[2019-02-28 07:40] LABS: HEMOGLOBIN 13.5 g/dL (14.0-18.0); MEAN CORPUSCULAR HEMOGLOBIN 27 pg (27-31); MEAN CORPUSCULAR HGB CONC 31 % (32-36); MEAN CORPUSCULAR VOLUME 84 fL (79.0-98.0); PLATELET COUNT (AUTO) 504 K/uL (130-430); RED CELL DISTRIBUTION WIDTH 19.4 % (9.0-15.0); WHITE BLOOD COUNT (AUTO) 19.1 K/uL (4.8-10.8)
[2019-02-28 08:00] VITALS: BP_SYST 100
--- NOTE | 2019-02-28 08:00 | NUR ---
am notes received pt in bed. res even and unlabored. vital stable. not in acute distress. safety and fall precautions maintained. ivf infusing well. iv site LFA 20 no s/s of infiltration noted. will conitnue to monitor
[2019-02-28 08:15] LABS: ALANINE AMINOTRANSFERASE 22 U/L (12-78); ALBUMIN 2.1 g/dL (3.4-4.8); ANION GAP 5 (5-15); ASPARTATE AMINOTRANSFERASE 12 U/L (10-37); CHLORIDE 104 mmol/L (98-107); CREATININE 0.63 mg/dL (0.55-1.30); GLUCOSE 121 mg/dL (70-99); SODIUM SERUM 140 mmol/L (136-145); TOTAL BILIRUBIN 0.5 mg/dL (0.0-1.0); UREA NITROGEN, BLOOD 17 mg/dL (8-21)
[2019-02-28] MEDS: FUROSEMIDE 40 MG/4 ML VIAL IVP SCH ×3 (08:58→21:11)
[2019-02-28] MEDS: FAMOTIDINE 20 MG TABLET NG SCH ×2 (08:58→21:12)
[2019-02-28] MEDS: APIXABAN 2.5 MG TABLET NG SCH ×2 (09:01→21:14)
--- NOTE | 2019-02-28 10:14 | NUR ---
ST SWALLOW [place] [phone] S:PT SEEN AT BEDSIDE AFTER CONSULT WITH [place] FLEMING. PT AWAKE/ALERT AND RESPONSIVE. DISORIENTED TO SITUATION AND DISPLEASED WITH DIET. "I WANT TO BE TREATED LIKE A MAN" O: DYSPHAGIA TX/MANAGEMENT, MAKE RECOMMENDATIONS A:PT RR AND VITALS STABLE; 02 SATURATION LOW (89-90) ALTHOUGH NOT SURE OF ACCURACY. CXR 02/27 SHOWS SAME BILATERAL INFILTRATES. WBC CONT TO BE ELEVATED. MILDLY SLOW ORAL TRANSFER BUT PHARYNGEAL SWALLOW APPEARS TIMELY. VOICE MILDLY WEAK BUT CLEAR, NO COUGH OR ELEVATED RR. PT PLOF IS MECHANICAL SOFT FINELY CHOPPED, HOWEVER PT TOO DECONDITIONED FOR THIS DIET AT THIS TIME (AND IS EDENTULOUS WITH NO DENTURES AT BEDSIDE). NO ANSWER WHEN DTR CALLED TO GET ADDITIONAL INFORMATION. D/W PT THAT DIET IS TEMPORARY WHILE HE IS RECOVERING FROM BEING INTUBATED AND ACUTELY ILL AND WILL BE ADVANCED ONCE HE IS STRONGER. PT VERBALIZED UNDERSTANDING. PER RN, DIET IS PUREE AND NTL, HOWEVER WATER PITCHER AT BEDSIDE. DISCUSSED CASE WITH DR LOPEZ AND [place] FLEMING. P: RECOMMEND TO CONTINUE WITH CURRENT DIET (PUREE AND NTL BY CUP), BUT OK FOR SMALL SIPS OF THIN WATER BETWEEN MEALS WITH 1:[address] TO MONITOR FOR SWALLOW FUNCTION AND ADVANCE DIET IF APPROPRIATE. CONSIDER MODIFIED SWALLOW STUDY/VIDEOFLUOROSCOPY IF PT DOES NOT IMPROVE.
[2019-02-28 11:10] LABS: BAND % (MANUAL) 18 % (0-6); BASOPHILS % (MANUAL) 0 % (0-2); EOSINOPHILS % (MANUAL) 2 % (0-7); LYMPHOCYTES % (MANUAL) 6 % (20-46); MONOCYTES % (MANUAL) 7 % (0-11)
[2019-02-28] MEDS ORDERED: POTASSIUM CHLORIDE 40 MEQ, LIDOCAINE JECT 2% PF 100 MG 75 MG in NS 250 ML IV ONE (11:30)
[2019-02-28 11:35] VITALS: BP_SYST 136
--- NOTE | 2019-02-28 12:18 | NUR ---
rn rounds pt stable eating lunch. due meds given as ordered. bs 130 . no coverge noted. kept comfortable
[2019-02-28 15:48] VITALS: BP_SYST 149
--- NOTE | 2019-02-28 16:25 | NUR ---
ROUNDS PT STABLE NOT IN ACUTE DISTRESS. CALL LIGHT WITHIN REACH
--- NOTE | 2019-02-28 17:54 | NUR ---
Patient refused Physical Therapy treatment today. Pros and cons were discussed with him and he understood. He requested to attempt treatment tomorrow.
--- NOTE | 2019-02-28 19:15 | NUR ---
CLOSING NOTES PT STABLE NOT IN ACUTE DISTRESS. CALL LIGHT WITHIN REACH REPORT GIVEN TO NIGHT NURSE
--- NOTE | 2019-02-28 19:30 | NUR ---
CHANGE OF SHIFT; pt. awake, on high fowlers position, dinner tray was not touch,pt. did not want to eat, verbalized "I dont eat that kind of food". pt. disoriented. reoriented, call light at bedside. IVF infusing vi rt. arm, denies any discomfort at this time. will reassess later. on fall risk precautions.
[2019-02-28 20:15] VITALS: BP_SYST 119
--- NOTE | 2019-02-28 20:15 | NUR ---
NOTES: repositioned, does not want HOB down, kept elevated. VS checked. verbalizing he cannot walk and he is paralyzed. on O2 @ 3l/nc. able to wiggle toes. rt. leg noted slight swollen and skin irritation, kirk cath to osd. cardia monitor shows sinus rhythm. call light at bedside. noted both hands cool to touch. some skin discoloration on left hand.
--- NOTE | 2019-02-28 22:00 | NUR ---
NOTES: due medications given. IV antibiotic started. pt. needs attended.
--- NOTE | 2019-02-28 23:45 | NUR ---
NOTES: pt. had loose bowel movement, narcisa care done. bilateral buttocks dressing intact. repositioned, turn to sides. left foot toes(great toe and 2nd toe) with foam dressing.
[2019-03-01] VITALS: BP_SYST 112
[2019-03-01] MEDS: IPRATROPIUM BROM 0.5 MG/2.5 ML VIAL.NEB (ATROVENT) INH SCH ×4 (00:43→20:08)
[2019-03-01] MEDS: LevALBUTEROL HCL 1.25 MG/0.5 ML *CONC.* VIAL.NEB (XOPENEX CONC.) INH SCH ×4 (00:43→20:05)
--- NOTE | 2019-03-01 02:00 | NUR ---
NOTES; pt. checked, sleeping at this time, easily awakened. no complaints manifested.
--- NOTE | 2019-03-01 04:30 | NUR ---
NOTES: condition observed. repositioned. continue to monitor. sound asleep when checked. fall risk precautions.
[2019-03-01] MEDS: PIPERACILLIN/TAZO 2.25G/DEX-IS 50 ML IV SCH ×2 (05:18→13:50)
--- NOTE | 2019-03-01 05:30 | NUR ---
NOTES: complete narcisa care and partial am care done. had large loose yellow stool. sacral dressing and buttock dressing changed. kirk cath intact. repositioned. IV pullet out , will start another IV site. for further care. fall risk precautions.
--- NOTE | 2019-03-01 06:45 | NUR ---
CLOSING NOTES: pt. went back to sleep. IV site restarted on rt. arm, accidentally pulled out by pt. resume IV antibiotic. needs further care and assistance. fall risk precautions. call light at bedside. O2 continuous. will endorse to day shift.
--- NOTE | 2019-03-01 07:35 | NUR ---
INITIAL NOTE/REFUSED MORNING LABS PT AWAKE, REMAINS CONFUSED, AOX2. PT REFUSED MORNING LABS. VSS. PT ON 3L NC, TOLERATING WELL, SATURATING AT 92. KWON DRAINING TO GRAVITY. CALL LIGHT WITHIN REACH, BED IN LOW AND LOCKED POSITION WITH BED ALARM ON.
[2019-03-01] MEDS: FUROSEMIDE 40 MG/4 ML VIAL IVP SCH (08:47)
[2019-03-01] MEDS: FAMOTIDINE 20 MG TABLET NG SCH ×2 (08:47→20:50)
[2019-03-01] MEDS: APIXABAN 2.5 MG TABLET NG SCH ×2 (08:48→20:49)
--- NOTE | 2019-03-01 09:30 | NUR ---
RN ROUNDS PT INCONTINENT OF BOWEL. CHANGED PT AND LINENS. PT TOLERATED WELL.
[2019-03-01 10:42] LABS: BASOPHILS # (AUTO) 0.1 K/uL (0.0-0.2); BASOPHILS % (AUTO) 0.5 % (0.0-2.0); EOSINOPHILS # (AUTO) 0.3 K/uL (0.0-0.4); EOSINOPHILS % (AUTO) 1.9 % (0.0-4.0); HEMATOCRIT 44.3 % (36-54); LYMPHOCYTES # (AUTO) 0.8 K/uL (1.0-5.5); LYMPHOCYTES % (AUTO) 4.6 % (20.5-51.5); MEAN CORPUSCULAR HEMOGLOBIN 27 pg (27-31); MEAN CORPUSCULAR HGB CONC 32 % (32-36); MEAN CORPUSCULAR VOLUME 84 fL (79.0-98.0); MONOCYTES # (AUTO) 1.5 K/uL (0.0-1.0); MONOCYTES % (AUTO) 9.3 % (1.7-9.3); NEUTROPHILS # (AUTO) 13.7 K/uL (1.8-7.7); NEUTROPHILS % (AUTO) 83.7 % (40.0-70.0); PLATELET COUNT (AUTO) 513 K/uL (130-430); RED BLOOD CELL COUNT(AUTO) 5.26 MIL/uL (4.2-6.2); RED CELL DISTRIBUTION WIDTH 19.7 % (9.0-15.0); WHITE BLOOD COUNT (AUTO) 16.4 K/uL (4.8-10.8)
[2019-03-01 10:56] LABS: ANION GAP 3 (5-15); CALCIUM 8.1 mg/dL (8.4-11.0); CHLORIDE 103 mmol/L (98-107); CREATININE 0.74 mg/dL (0.55-1.30); GLUCOSE 185 mg/dL (70-99); POTASSIUM 3.1 mmol/L (3.5-5.1); SODIUM SERUM 141 mmol/L (136-145); UREA NITROGEN, BLOOD 21 mg/dL (8-21)
[2019-03-01 11:02] LABS: ALANINE AMINOTRANSFERASE 16 U/L (12-78); ALBUMIN 2.2 g/dL (3.4-4.8); ASPARTATE AMINOTRANSFERASE 11 U/L (10-37); TOTAL BILIRUBIN 0.5 mg/dL (0.0-1.0)
--- NOTE | 2019-03-01 11:24 | NUR ---
PAGED PAGED JEWEL LINDQUIST AT [phone] SPOKE WITH CHELO.
[2019-03-01 11:27] VITALS: BP_SYST 123
[2019-03-01] MEDS: BALSAM PERU/CASTOR OIL 60 GM OINT...G. TP SCH (11:27)
--- NOTE | 2019-03-01 11:33 | NUR ---
DR. LOPEZ SPOKE W/ MD VIA PHONE, INFORMED MD PT K 3.1. NEW ORDERS RECEIVED VERIFIED WITH TELEPHONE READ BACK.
[2019-03-01] MEDS: INSULIN REGULAR, HUMAN 100 UNITS/ML, 10 ML VIAL (humuLIN R) SUBCUT PRN (11:39)
--- NOTE | 2019-03-01 11:40 | NUR ---
REFUSED INSULIN COVERAGE BSG 158. EDUCATED PT ON USES AND SIDE EFFECTS OF INSULIN. PT UNCOOPERATIVE AND REFUSING INSULIN COVERAGE AT THIS TIME.
[2019-03-01] MEDS ORDERED: POTASSIUM CHLORIDE 20 MEQ TAB.PRT.SR PO ONE (11:45)
--- NOTE | 2019-03-01 13:40 | NUR ---
RN ROUNDS PT AWAKE, RECEIVING BREATHING TREATMENT, TOLERATING WELL. IV ANTIBIOTICS INFUSING WELL.
[2019-03-01 15:43] VITALS: BP_SYST 114
--- NOTE | 2019-03-01 15:49 | NUR ---
[facility] SPOKE WITH JEREMY FROM [facility]. INFORMED ME THAT ONCE PT IS DISCHARGED, PT WILL BE RETURNING BACK TO HIS SAME ROOM IN [place] [phone], [facility] [phone] IS ON WILL CALL FOR THE PT.
--- NOTE | 2019-03-01 16:40 | NUR ---
RN ROUNDS PT RESTING IN BED, NO ACUTE DISTRESS NOTED. PT ON 3L NC, TOLERATING WELL.
[2019-03-01 17:25] VITALS: BP_SYST 114
--- NOTE | 2019-03-01 17:33 | NUR ---
APOORVA GAVE REPORT TO AKBAR. PT ESTIMATED OIL WELL FISHING TOOL TECHNICIAN AT 3PM BY [facility]. PT GOING TO ROOM 311. Addendum: 03/01/19 at 1751 by Ana Maria Dang RN CALLED [facility] PRATHER. NO ANSWER. LEFT CALL BACK NUMBER.
--- NOTE | 2019-03-01 18:42 | NUR ---
CLOSING NOTE PT RESTING IN BED, NO ACUTE DISTRESS NOTED, PT ON 3L NC TOLERATING WELL. IV SALINE LOCKED. CALL LIGHT WITHIN REACH, BED IN LOW AND LOCKED POSITION WITH BED ALARM ON. PT REFUSED PICTURES FOR DISCHARGE AND LOWER EXTREMITY WOUND CARE. WILL CONTINUE TO MONITOR UNTIL PT CARE IS ENDORSED TO PRODUCT DEMONSTRATOR RN.
[2019-03-01 19:00] VITALS: BP_SYST 136
--- NOTE | 2019-03-01 19:05 | NUR ---
INITIAL NOTES PATIENT IS LAYING IN BED AND STABLE. NO S/S OF RESPIRATORY DISTRESS NOTED. PATIENT IS IN A PINK GOWN AND HAS A PINK BLANKET. RECEIVED REPORT FROM [place] PENNINGTON. RECEIVED INFORMATION ON DISCHARGE. WILL CONTINUE DISCHARGE CARE. PLAN OF CARE DISCUSSED WITH PATIENT AT THIS TIME. PATIENT UNSUCCESSFULLY DEMONSTRATES USAGE OF CALL LIGHT AT THIS TIME. WILL CONTINUE TO MONITOR UNTIL AMBULANCE ARRIVES. DESPITE EDUCATIONAL EFFORTS, PATIENT REFUSED WOUND CARE AND PICTURES AT THIS TIME. WILL CONTINUE TO EDUCATE TILL AMBULANCE ARRIVES. FALL, SAFETY, RESPIRATORY, AND ASPIRATION PRECAUTIONS WILL BE IN PLACE THROUGHOUT THE SHIFT.
--- NOTE | 2019-03-01 20:14 | NUR ---
Follow up call for [facility], ETA [phone]
--- NOTE | 2019-03-01 20:59 | NUR ---
CALLED PATIENT FAMILY FOR TRANSFER CALLED PATIENT FAMILY [facility]TA CORREA REGARDING TRANSFER TO [facility] Addendum: 03/01/19 at 2301 by Bhavin Mccabe RN PHONE NUMBER [phone] Addendum: 03/02/19 at 0051 by Bhavin Mccabe RN TRANSFER TO [facility]
[2019-03-01] MEDS ORDERED: FUROSEMIDE 40 MG TABLET PO SCH (21:00)
--- NOTE | 2019-03-01 21:02 | NUR ---
WOUND PICTURES/CARE PATIENT REFUSED WOUND PICTURES AND CARE DESPITE EDUCATIONAL EFFORTS. AMBULANCE ARRIVED ON THE FLOOR.
--- NOTE | 2019-03-01 21:05 | NUR ---
AMBULANCE PROCESS CONTROL TECH/DC TELE&IV PATIENT IS STABLE. PLAN OF DISCHARGE DISCUSSED WITH PATIENT. REPORT GIVEN TO AMBULANCE. PATIENT IS STABLE. NO S/S OF RESPIRATORY DISTRESS NOTED. DC FROM TELE MONITOR. DC IV. IV IS IN PLACE. TIP IN TACT. NO S/S OF MAJOR BLEEDING. Addendum: 03/02/19 at 0405 by Bhavin Mccabe RN IV IS NO LONGER IN PLACE*
== END 2019-03-01 21:24 | DRG 870 ==
LOC: SED 14:45 → SIC 17:58 → STU 02-26 12:25
PROVIDERS: ADMIT Internal Medicine Hospice and Palliative Medicine; ATTEND Internal Medicine Hospice and Palliative Medicine
PROC: 5A1955Z Respiratory Ventilation, Greater than 96 Consecutive Hours (ICD-10-PCS; principal; 2019-02-18)
PROC: 0BH17EZ Insertion of Endotracheal Airway into Trachea, Via Natural or Artificial Opening (ICD-10-PCS; 2019-02-18)
DX: A41.9 Sepsis, unspecified organism (principal); J18.9 Pneumonia, unspecified organism; J96.01 Acute respiratory failure with hypoxia; N18.6 End stage renal disease; J96.02 Acute respiratory failure with hypercapnia; R40.20 Unspecified coma; R65.21 Severe sepsis with septic shock; I13.2 Hypertensive heart and chronic kidney disease with heart failure and with stage 5 chronic kidney disease, or end stage renal disease; J44.0 Chronic obstructive pulmonary disease with (acute) lower respiratory infection; N17.9 Acute kidney failure, unspecified; N39.0 Urinary tract infection, site not specified; I48.19 Other persistent atrial fibrillation; E46 Unspecified protein-calorie malnutrition; E87.0 Hyperosmolality and hypernatremia; E87.2 Acidosis; D47.3 Essential (hemorrhagic) thrombocythemia; E83.51 Hypocalcemia; I25.10 Atherosclerotic heart disease of native coronary artery without angina pectoris; G30.9 Alzheimer's disease, unspecified; E87.6 Hypokalemia; F02.80 Dementia in other diseases classified elsewhere, unspecified severity, without behavioral disturbance, psychotic disturbance, mood disturbance, and anxiety; E11.22 Type 2 diabetes mellitus with diabetic chronic kidney disease; E87.5 Hyperkalemia; G25.3 Myoclonus; I50.9 Heart failure, unspecified; N40.0 Benign prostatic hyperplasia without lower urinary tract symptoms; Z90.49 Acquired absence of other specified parts of digestive tract; Z87.891 Personal history of nicotine dependence; Z68.26 Body mass index [BMI] 26.0-26.9, adult; Z79.899 Other long term (current) drug therapy
CPT/HCPCS: 36415; 36600; 43753; 71045; 76770; 80048; 80053; 81000-TC; 82310-TC; 82803-TC; 82962; 83605; 83735-TC; 83880; 84100-TC; 84132-TC; 84484; 85007; 85025; 85027; 85610-TC; 85730-TC; 87040-TC; 87070-TC; 87081; 87086; 87205-TC; 92526-GN; 92610-GN; 93005; 93306; 93970; 94002; 94003; 94640; 94760; 97110-GP; 97530-GP; 99291; A6209; G0378; J0456; J0610; J1720; J1815; J1940; J2060; J2543; J2704; J3480; J3490; J7030; J7040; J7050; J7060; J7120; J7612